=== PATIENT | male | born 1960 | race Caucasian/White ===

== ENCOUNTER 2016-05-15 09:48 | Inpatient (IN) | payer OTHER ==
[~2016-05-15 09:48] MED LIST: Bisacodyl 5 MG Tab PO PRN; Lactated Ringers 1,000 ML IV SCH; Lidocaine 1%/Sod Bicarbonate in NS 8.4% 1 ML Syringe IV PRN; Magnesium Hydroxide 400 MG/5 ML Susp 30 ML Cup PO PRN; Morphine 2 MG/ML Syringe IVPUSH PRN; Morphine 8 MG, EPINEPHrine 0.3 MG, Cefuroxime 750 MG, Ketorolac 30 MG, Sodium Chloride ... ONE; Ondansetron 4 MG/2 ML SDV IVPUSH PRN; Sodium Chloride 0.9% 10 ML Syringe FLUSH PRN
[2016-05-15] MEDS ORDERED: ceFAZolin 1 GM Vial ONE (09:50)
[2016-05-15] MEDS ORDERED: Bupivacaine 0.5% 30 ML SDV ONE (09:50)
[2016-05-15] MEDS ORDERED: Sodium Chloride 0.9% 10 ML ONE (09:55)
[2016-05-15] MEDS ORDERED: fentaNYL 100 MCG/2 ML SDV ONE (09:55)
[2016-05-15] MEDS ORDERED: Propofol 200 MG/20 ML SDV ONE ×9 (09:55→13:01)
[2016-05-15] MEDS ORDERED: Midazolam 1 MG/ML 2 ML SDV ONE ×2 (09:56→11:12)
--- NOTE | 2016-05-15 10:12 | PCM.PREANE ---
Preanesthetic Assessment - Anesthesia/Transfusion/Family Hx Anesthesia History: Prior Anesthesia Without Reaction Type of Anesthesia Reaction: Unknown Family History of Anesthesia Reaction: No Transfusion History: Unknown Type of Transfusion Reactions: Reports: Unknown - Review of Systems General: No Symptoms Pulmonary: No Symptoms Cardiovascular: No Symptoms (HTN, no meds currently) Gastrointestinal: No symptoms (GERD, ct shows hiatal hernia) Neurological: No Symptoms Other: Reports: Anxiety - Physical Assessment NPO Status Date: 05/15/16 NPO Status Time: 00:01 Pulse: 94 O2 Sat by Pulse Oximetry: 96 Respiratory Rate: 20 Blood Pressure: 156/84 Temperature: 36.7 C Weight: 128.73 kg ASA Class: 2 Mental Status: Alert & Oriented x3 Dentition: Reports: Normal Dentition Thyro-Mental Finger Breadths: 3 Mouth Opening Finger Breadths: 3 ROM/Head Extension: Full Lungs: Clear to auscultation, Normal respiratory effort Cardiovascular: Regular Rate, Regular Rhythm - Lab Values: Laboratory Last Values MRSA (PCR) Negative 04/28/16 10:51 - Allergies Allergies/Adverse Reactions: Allergies Allergy/AdvReac Type Severity Reaction Status Date / Time No Known Allergies Allergy Verified 05/12/16 12:52 - Blood Blood Available: No Product(s) Available: None - Anesthesia Plan Pre-Op Medication Ordered: None - Acknowledgements Anesthesia Type Planned: Spinal Pt an Appropriate Candidate for the Planned Anesthesia: Yes Alternatives and Risks of Anesthesia Discussed w Pt/Guardian: Yes Pt/Guardian Understands and Agrees with Anesthesia Plan: Yes PreAnesthesia Questionnaire Musculoskeletal History: Reports: Osteoarthritis Psychiatric History: Reports: Anxiety - Past Surgical History HEENT Surgical History: Reports: Cataract surgery GI Surgical History: Reports: Colonoscopy Musculoskeletal Surgical History: Reports: Carpal tunnel - SUBSTANCE USE Smoking Status *Q: Former Smoker Tobacco Use Within Last Twelve Months: Cigarettes Recreational Drug Use History: No - HOME MEDS Home Medications: Home Meds Famotidine [Pepcid] 20 mg PO DAILY 05/12/16 [History] Hydrocodone/Acetaminophen [[place] 5-325] 1 tab PO ASDIRECTED PRN 05/12/16 [ History] LORazepam [Ativan] 0.5 mg PO ASDIRECTED PRN 05/12/16 [History] - CURRENT (IN HOUSE) MEDS Current Meds: Current Medications Bisacodyl (Dulcolax) 5 mg PO DAILY PRN PRN Reason: Constipation Morphine Sulfate 8 mg/Epinephrine HCl 0.3 mg/Cefuroxime Sodium 750 mg/Ketorolac Tromethamine 30 mg/Sodium Chloride 27.9 ml 0 mg .XX ONETIME ONE Stop: 05/15/16 11:31 Cyclobenzaprine HCl (Flexeril) 10 mg PO TID PRN PRN Reason: Spasms Docusate Sodium (Colace) 100 mg PO BID [facility] Famotidine (Pepcid) 20 mg PO Q12H [facility] Lactated Ringer's (Ringers, Lactated) 1,000 mls @ 125 mls/hr IV ASDIRECTED [facility] Cefazolin Sodium/Dextrose 2 gm (/ Premix) 50 mls @ 100 mls/hr IV Q8H [facility] Stop: 05/16/16 02:14 Lidocaine/Sodium Bicarbonate (Buffered Lidocaine 1% In Ns 8.4%) 0.25 ml IV ONETIME PRN PRN Reason: Prior to IV Start Magnesium Hydroxide (Milk Of Magnesia) 30 ml PO BID PRN PRN Reason: Constipation Morphine Sulfate (Morphine) 2 mg IVPUSH Q2H PRN PRN Reason: Breakthrough Pain Multivitamins (Thera) 1 each PO WITHBREAKFAST [facility] Naloxone HCl (Narcan) 0.1 mg IVPUSH Q5M PRN PRN Reason: Oversedation Stop: 05/15/16 09:55 Ondansetron HCl (Zofran) 4 mg IVPUSH Q6H PRN PRN Reason: Nausea/Vomiting Oxycodone/Acetaminophen (Percocet 325-5 Mg) 1 - 2 tab PO Q4H PRN PRN Reason: Pain Rivaroxaban (Xarelto) 10 mg PO DAILY [facility] Senna (Senna) 8.6 mg PO BID PRN PRN Reason: Constipation Sodium Chloride (Saline Flush) 10 ml FLUSH ASDIRECTED PRN PRN Reason: Keep Vein Open Discontinued Medications Bupivacaine HCl (Marcaine 0.5%) Confirm Administered Dose 30 ml .ROUTE .STK-MED ONE Stop: 05/15/16 09:51 Cefazolin Sodium (Ancef) Confirm Administered Dose 2 gm .ROUTE .STK-MED ONE Stop: 05/15/16 09:56 Cefazolin Sodium (Ancef) Confirm Administered Dose 2 gm .ROUTE .STK-MED ONE Stop: 05/15/16 09:51 Morphine Sulfate 8 mg/Epinephrine HCl 0.3 mg/Cefuroxime Sodium 750 mg/Ketorolac Tromethamine 30 mg/Sodium Chloride 27.9 ml 0 mg .XX ONETIME ONE Stop: 05/15/16 08:58 Fentanyl (Sublimaze) Confirm Administered Dose 100 mcg .ROUTE .STK-MED ONE Stop: 05/15/16 09:56 Sodium Chloride (Normal Saline) Confirm Administered Dose 10 mls @ as directed .ROUTE .STK-MED ONE Stop: 05/15/16 09:56 Iodine (Iodine 2% Mild Tincture) Confirm Administered Dose 30 ml .ROUTE .STK- MED ONE Stop: 05/15/16 09:51 Midazolam HCl (Versed 1 Mg/Ml) Confirm Administered Dose 2 mg .ROUTE .STK-MED ONE Stop: 05/15/16 09:57 Propofol (Diprivan 20 Ml) Confirm Administered Dose 200 mg .ROUTE .STK-MED ONE Stop: 05/15/16 09:56 Tranexamic Acid (Cyklokapron) Confirm Administered Dose 1,000 mg .ROUTE .STK- MED ONE Stop: 05/15/16 09:51 Preanesthetic Assessment - LAB Values: Laboratory Last Values MRSA (PCR) Negative 04/28/16 10:51 - ALLERGIES Allergies/Adverse Reactions: Allergies Allergy/AdvReac Type Severity Reaction Status Date / Time No Known Allergies Allergy Verified 05/12/16 12:52
[2016-05-15] MEDS ORDERED: diphenhydrAMINE 50 MG/ML SDV IVPUSH PRN (10:18)
[2016-05-15] MEDS ORDERED: fentaNYL 100 MCG/2 ML SDV IVPUSH PRN (10:18)
[2016-05-15] MEDS ORDERED: Ondansetron 4 MG/2 ML SDV IVPUSH PRN (10:18)
[2016-05-15] MEDS ORDERED: Morphine PF 10 MG/10 ML SDV ONE (10:27)
[2016-05-15] MEDS ORDERED: HYDROmorphone 0.5 MG/0.5 ML Syringe IVPUSH PRN (11:30)
[2016-05-15] MEDS: Iodine/Sodium Iodide 2% Tincture 30 ML Bottle ONE ×2 (11:30→12:23)
[2016-05-15] MEDS: ceFAZolin 1 GM Vial ONE ×2 (11:31→12:27)
[2016-05-15] MEDS: Bupivacaine 0.25% 30 ML SDV ONE ×2 (11:32→12:32)
[2016-05-15] MEDS: Morphine 8 MG, EPINEPHrine 0.3 MG, Cefuroxime 750 MG, Ketorolac 30 MG, Sodium Chloride ... ONE ×15 (11:32→15:29)
[2016-05-15] MEDS ORDERED: Phenylephrine/Normal Saline 100 MCG/ML 10 ML Syringe ONE (11:38)
[2016-05-15] MEDS ORDERED: Lactated Ringers 1,000 ML ONE ×3 (11:56→13:14)
[2016-05-15] MEDS ORDERED: Naloxone 0.4 MG/ML SDV IVPUSH PRN (13:00)
--- NOTE | 2016-05-15 13:24 | PCM.POSTAN ---
POST ANESTHESIA ASSESSMENT - MENTAL STATUS Mental Status: alert, oriented - VITAL SIGNS Pulse Rate: 74 SaO2: 98 Resp Rate: 16 Blood Pressure: 103/64 Temperature: 36.5 C - RESPIRATORY Respiratory Status: respiratory rate WNL, airway patent, O2 saturation stable, supplemental oxygen - CARDIOVASCULAR CV Status: pulse rate WNL, blood pressure stable - GASTROINTESTINAL GI Status: no symptoms - PAIN Pain Score: 0 - POST OP HYDRATION Hydration Status: adequate & stable
--- NOTE | 2016-05-15 13:34 | PCM.CONS ---
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 Patient is doing relatively well. Currently, his pain is controlled. He denies any acute issues. Hospitalist was consulted for postoperative care. - Related Data Allergies/Adverse Reactions: Allergies Allergy/AdvReac Type Severity Reaction Status Date / Time No Known Allergies Allergy Verified 05/15/16 15:34 Home Medications: Home Meds Famotidine [Pepcid] 20 mg PO DAILY 05/12/16 [History] LORazepam [Ativan] 0.5 mg PO ASDIRECTED PRN 05/12/16 [History] Acetaminophen [Tylenol] 650 mg PO Q4H PRN 05/15/16 [History] Ergocalciferol (Vitamin D2) [Vitamin D2] 2,000 units PO DAILY 05/15/16 [History] Melatonin 6 mg PO BEDTIME 05/15/16 [History] Multivitamin [Men's Multi-Vitamin] 1 tab PO DAILY 05/15/16 [History] Ubidecarenone [Coq10] 1 tab PO DAILY 05/15/16 [History] Past Medical History Musculoskeletal History: Reports: Osteoarthritis Psychiatric History: Reports: Anxiety - Past Surgical History HEENT Surgical History: Reports: Cataract surgery GI Surgical History: Reports: Colonoscopy Musculoskeletal Surgical History: Reports: Carpal tunnel Social & Family History - Tobacco Use Smoking Status *Q: Former Smoker Used Tobacco, but Quit: Yes - Recreational Drug Use Recreational Drug Use: No Drug Use in Last 12 Months: No H&P Review of Systems - Review of Systems: Review Of Systems: See Below General: Denies: fever, chills, malaise, weakness, fatigue HEENT: Reports: no symptoms Pulmonary: Denies: Shortness of Breath, Cough Cardiovascular: Denies: chest pain Gastrointestinal: Denies: Abdominal pain, Nausea, Vomiting Genitourinary: Reports: no symptoms Musculoskeletal: Reports: no symptoms Skin: Denies: cyanosis, pallor, rash, erythema Psychiatric: Denies: depression, anxiety, hallucinations Neurological: Reports: Difficulty Walking, Gait Disturbance. Denies: Confusion Hematologic/Lymphatic: Reports: no symptoms Immunologic: Reports: no symptoms Exam - Exam Exam: See Below - Vital Signs Vital Signs: Last Vital Signs Temp 36.5 C 05/15/16 13:23 Pulse 74 05/15/16 13:23 Resp 16 05/15/16 13:23 BP 103/64 05/15/16 13:23 Pulse Ox 98 05/15/16 13:23 Weight: 128.73 kg - Exam General: alert, oriented, cooperative, other (Obese). No: mild distress HEENT: Conjunctiva clear, Mucosa moist & pink, Nares patent, Normal nasal septum , Posterior pharynx clear, Pupils equal Neck: supple, trachea midline, 2+ carotid pulse wo bruit, full range of motion, other (short and thick) Lungs: Clear to auscultation, Normal respiratory effort Cardiovascular: regular rate, regular rhythm Abdomen: normal bowel sounds, soft, other (Obese). No: organomegaly (Male) Exam: Other (indwelling sweet catheter) Rectal (Males) Exam: Deferred Back Exam: normal inspection, decreased range of motion Extremities: normal inspection, normal pulses. No: clubbing, cyanosis, calf tenderness, edema Peripheral Pulses: 2+: posterior tibial (L), posterior tibial (R), dorsalis pedis (L), dorsalis pedis (R) Skin: warm, dry, intact Neuro Extensive - Mental Status: oriented x3, normal cognition, memory intact Neuro Extensive - Motor, Sensory, Reflexes: CN II-XII intact (limited but fairly intact), abnormal gait Psychiatric: alert, normal affect, normal mood Consult PN Assessment/Plan POD#: 0 Procedures: Procedures COMPLETE CBC W/AUTO DIFF WBC (04/05/15) COMPREHEN METABOLIC PANEL (04/05/15) LIPID PANEL (04/05/15) PT EVALUATION (03/24/15) ROUTINE VENIPUNCTURE (04/05/15) THERAPEUTIC EXERCISES (04/16/15) X-RAY EXAM OF KNEE 3 (06/07/15) Problem List Initiated/Reviewed/Updated: Yes Plan: Assessment: Acute: Post-Operative Care State - Stable - Continue to monitor for hemodynamic instability S/p Left Total Knee Arthroplasty - Stable - DVT and Pain Management as per primary team Hx/o Chronic Osteoarthosis - Pain Management as per primary team Chronic: HTN Anxiety 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 Requesting Provider: Dr. Zambrano Date Consult Requested: 05/15/16 Reason for Consult: Post-Operative Care Patient History Reviewed: Yes Admission H&P Reviewed: Yes Consult Result/Summary: Stable
--- NOTE | 2016-05-15 16:05 | CR ---
Pelvis and left hip: AP view of the pelvis was obtained as well as lateral view of the left hip. Comparison: No previous study. Left hip prosthesis is seen. Components are aligned. Underlying bony structures are intact. Joint space within the right hip is maintained. No acute fracture or other abnormality is seen. Impression: 1. Satisfactory appearance of recently placed left hip prosthesis. 2. AP pelvis and left hip exam are unremarkable. Nondiagnostic code #2
[2016-05-15] MEDS: Acetaminophen/oxyCODONE 325-5 MG Tab PO PRN ×2 (16:12→20:41)
[2016-05-15] MEDS ORDERED: LORazepam 0.5 MG Tab PO PRN (16:43)
[2016-05-15] MEDS ORDERED: Acetaminophen 325 MG Tab PO PRN (16:43)
[2016-05-15] MEDS: ceFAZolin 2 GM in Premix Bag 1 BAG IV SCH (17:33)
[2016-05-15] MEDS: ceFAZolin 1 GM in Premix Bag 1 BAG IV SCH (17:34)
[2016-05-15] MEDS: Docusate Sodium 100 MG Cap PO SCH (20:41)
[2016-05-15] MEDS: Cyclobenzaprine 10 MG Tab PO PRN (20:42)
[2016-05-15] MEDS ORDERED: Melatonin 6 MG PO SCH (21:00)
[2016-05-15] MEDS ORDERED: Sennosides 8.6 MG Tab PO PRN (21:00)
[2016-05-15] MEDS ORDERED: Famotidine 20 MG Tab PO SCH ×2 (21:00)
[2016-05-16] MEDS: Acetaminophen/oxyCODONE 325-5 MG Tab PO PRN ×4 (00:38→14:07)
[2016-05-16] MEDS: ceFAZolin 2 GM in Premix Bag 1 BAG IV SCH ×3 (00:42→09:55)
[2016-05-16] MEDS: ceFAZolin 1 GM in Premix Bag 1 BAG IV SCH ×3 (00:42→09:55)
[2016-05-16] MEDS ORDERED: Multivitamins,Therapeutic Tab PO SCH ×2 (07:00→09:00)
[2016-05-16] MEDS ORDERED: UBIDECARENONE PO SCH (09:00)
[2016-05-16] MEDS ORDERED: Rivaroxaban 10 MG Tab PO SCH (09:00)
[2016-05-16] MEDS ORDERED: ERGOCALCIFEROL 2000 UNIT PO SCH (09:00)
--- NOTE | 2016-05-16 09:31 | PCM.CONSN ---
- General Info Date of Service: 05/16/16 Admission Dx/Problem (Free Text): Admission Diagnosis/Problem Admission Diagnosis/Problem Osteoarthritis of hip POD #1 S/P Lt ARMANDO with Dr. Zambrano Doing well, pain under fair control, slept well. No nausea. No CP, SOB, palpitations, abd pain VSS Labs stable. Hgb 11.9 this am. Functional Status: Reports: pain controlled, tolerating diet, ambulating, urinating. Denies: new symptoms - Review of Systems General: Reports: No Symptoms HEENT: Reports: no symptoms Pulmonary: Reports: no symptoms Cardiovascular: Reports: No Symptoms Gastrointestinal: Reports: No symptoms Genitourinary: Reports: no symptoms Musculoskeletal: Reports: leg pain (lt hip) Skin: Reports: no symptoms Neurological: Reports: No Symptoms Psychiatric: Reports: no symptoms - Patient Data Vitals - most recent: Last Vital Signs Temp 98.4 F 05/16/16 03:37 Pulse 94 05/16/16 03:37 Resp 16 05/16/16 08:00 BP 146/83 H 05/16/16 03:37 Pulse Ox 98 05/16/16 08:00 Weight - most recent: 293 lb 11.2 oz I&O - last 24 hours: Intake & Output 05/15/16 05/16/16 05/16/16 22:59 06:59 14:59 Intake Total 1180 1050 Output Total 785 250 Balance 395 800 Lab Results last 24 hrs: Laboratory Results - last 24 hr 05/16/16 05/16/16 05/16/16 Range/Units 05:53 05:53 05:53 WBC 11.54 H (4.23-9.07) K/mm3 RBC 4.12 L (4.63-6.08) M/mm3 Hgb 11.9 L (13.7-17.5) gm/L Hct 36.1 L (40.1-51.0) % MCV 87.6 (79.0-92.2) fl MCH 28.9 (25.7-32.2) pg MCHC 33.0 (32.2-35.5) g/dl RDW Std Deviation 42.1 (35.1-43.9) fL Plt Count 259 (163-337) K/mm3 MPV 9.7 (9.4-12.3) fl Neut % (Auto) 65.9 (34.0-67.9) % Lymph % (Auto) 16.8 L (21.8-53.1) % [place] % (Auto) 16.3 H (5.3-12.2) % Eos % (Auto) 0.7 L (0.8-7.0) Baso % (Auto) 0.1 (0.1-1.2) % Neut # 7.61 H (1.78-5.38) K/mm3 Lymph # 1.94 (1.32-3.57) K/mm3 [place] # 1.88 H (0.30-0.82) K/mm3 Eos # 0.08 (0.04-0.54) K/mm3 Baso # 0.01 (0.01-0.08) K/mm3 Manual Slide Review Normal smear Sodium 135 L (136-145) mEq/L Potassium 4.4 (3.5-5.1) mEq/L Chloride 100 (98-107) mEq/L Carbon Dioxide 26 (21-32) mEq/L Anion Gap 13.4 (5-15) BUN 18 (7-18) mg/dL Creatinine 1.0 (0.7-1.3) mg/dL Est Cr Clr Drug Dosing 84.15 mL/min Estimated GFR (MDRD) > 60 (>60) mL/min BUN/Creatinine Ratio 18.0 (14-18) Glucose 122 H (74-106) mg/dL Calcium 8.6 (8.5-10.1) mg/dL Total Bilirubin 0.5 (0.2-1.0) mg/dL Direct Bilirubin 0.10 (0.0-0.2) mg/dl Indirect Bilirubin 0.40 AST 27 (15-37) U/L ALT 21 (16-63) U/L Alkaline Phosphatase 84 (46-116) U/L Total Protein 6.3 L (6.4-8.2) g/dl Albumin 3.3 L (3.4-5.0) g/dl Globulin 3.0 gm/dL Albumin/Globulin Ratio 1.1 (1-2) Med Orders - Current: Current Medications Acetaminophen (Tylenol) 650 mg PO Q4H PRN PRN Reason: Breakthrough Pain Bisacodyl (Dulcolax) 5 mg PO DAILY PRN PRN Reason: Constipation Cyclobenzaprine HCl (Flexeril) 10 mg PO TID PRN PRN Reason: Spasms Last Admin: 05/15/16 20:42 Dose: 10 mg Docusate Sodium (Colace) 100 mg PO BID [facility] Last Admin: 05/15/16 20:41 Dose: 100 mg Famotidine (Pepcid) 20 mg PO BEDTIME [facility] Last Admin: 05/15/16 20:42 Dose: 20 mg Cefazolin Sodium/Dextrose 2 gm (/ Premix) 50 mls @ 100 mls/hr IV Q8H [facility] Stop: 05/16/16 10:29 Last Admin: 05/16/16 01:06 Dose: Not Given Cefazolin Sodium/Dextrose 1 gm (/ Premix) 50 mls @ 100 mls/hr IV Q8H [facility] Stop: 05/16/16 10:29 Last Admin: 05/16/16 01:06 Dose: Not Given Lorazepam (Ativan) 0.5 mg PO ASDIRECTED PRN PRN Reason: Anxiety Magnesium Hydroxide (Milk Of Magnesia) 30 ml PO BID PRN PRN Reason: Constipation Morphine Sulfate (Morphine) 2 mg IVPUSH Q2H PRN PRN Reason: Breakthrough Pain Multivitamins (Thera) 1 each PO DAILY [facility] Ondansetron HCl (Zofran) 4 mg IVPUSH Q6H PRN PRN Reason: Nausea/Vomiting Oxycodone/Acetaminophen (Percocet 325-5 Mg) 1 - 2 tab PO Q4H PRN PRN Reason: Pain Last Admin: 05/16/16 05:49 Dose: 2 tab Ergocalciferol ( Vitamin D2) [Vitamin D2] 2,000 Units 0 each PO DAILY [facility] Melatonin 6 Mg 0 each PO BEDTIME [facility] Last Admin: 05/15/16 20:43 Dose: Not Given Ubidecarenone [Coq10 (]) 0 each PO DAILY [facility] Rivaroxaban (Xarelto) 10 mg PO DAILY [facility] Senna (Senna) 8.6 mg PO BID PRN PRN Reason: Constipation Sodium Chloride (Saline Flush) 10 ml FLUSH ASDIRECTED PRN PRN Reason: Keep Vein Open Discontinued Medications Bupivacaine HCl (Marcaine 0.5%) Confirm Administered Dose [address] ml [address] .[facility]-MED ONE Stop: 05/15/16 09:51 Bupivacaine HCl (Marcaine 0.25%) Confirm Administered Dose 30 ml .ROUTE .STK- MED ONE Stop: 05/15/16 10:05 Last Admin: 05/15/16 12:32 Dose: 30 ml Cefazolin Sodium (Ancef) Confirm Administered Dose 2 gm .ROUTE .STK-MED ONE Stop: 05/15/16 09:56 Last Admin: 05/15/16 12:27 Dose: 2 gm Cefazolin Sodium (Ancef) Confirm Administered Dose 2 gm .ROUTE .STK-MED ONE Stop: 05/15/16 09:51 Morphine Sulfate 8 mg/Epinephrine HCl 0.3 mg/Cefuroxime Sodium 750 mg/Ketorolac Tromethamine 30 mg/Sodium Chloride 27.9 ml 0 mg .XX ONETIME ONE Stop: 05/15/16 11:31 Last Admin: 05/15/16 15:29 Dose: Not Given Morphine Sulfate 8 mg/Epinephrine HCl 0.3 mg/Cefuroxime Sodium 750 mg/Ketorolac Tromethamine 30 mg/Sodium Chloride 27.9 ml 0 mg .XX ONETIME ONE Stop: 05/15/16 08:58 Last Admin: 05/15/16 15:29 Dose: Not Given Diphenhydramine HCl (Benadryl) 25 mg IVPUSH Q6H PRN PRN Reason: itching Stop: 05/15/16 18:00 Last Admin: 05/15/16 14:37 Dose: 25 mg Famotidine (Pepcid) 20 mg PO Q12H [facility] Fentanyl (Sublimaze) Confirm Administered Dose 100 mcg .ROUTE .STK-MED ONE Stop: 05/15/16 09:56 Fentanyl (Sublimaze) 50 mcg IVPUSH Q5M PRN PRN Reason: pain Stop: 05/15/16 18:00 Hydromorphone HCl (Dilaudid) 0.5 mg IVPUSH Q15M PRN PRN Reason: Pain (severe 7-10) Stop: 05/15/16 11:46 Lactated Ringer's (Ringers, Lactated) 1,000 mls @ 125 mls/hr IV ASDIRECTED [facility] Last Admin: 05/15/16 10:10 Dose: 125 mls/hr Sodium Chloride (Normal Saline) Confirm Administered Dose 10 mls @ as directed .ROUTE .STK-MED ONE Stop: 05/15/16 09:56 Lactated Ringer's (Ringers, Lactated) Confirm Administered Dose 1,000 mls @ as directed .ROUTE .STK-MED ONE Stop: 05/15/16 11:57 Lactated Ringer's (Ringers, Lactated) Confirm Administered Dose 1,000 mls @ as directed .ROUTE .STK-MED ONE Stop: 05/15/16 12:13 Lactated Ringer's (Ringers, Lactated) Confirm Administered Dose 1,000 mls @ as directed .ROUTE .STK-MED ONE Stop: 05/15/16 13:15 Iodine (Iodine 2% Mild Tincture) Confirm Administered Dose 30 ml .ROUTE .STK- MED ONE Stop: 05/15/16 09:51 Last Admin: 05/15/16 12:23 Dose: 18 ml Lidocaine/Sodium Bicarbonate (Buffered Lidocaine 1% In Ns 8.4%) 0.25 ml IV ONETIME PRN PRN Reason: Prior to IV Start Stop: 05/15/16 18:00 Last Admin: 05/15/16 10:09 Dose: 0.25 ml Midazolam HCl (Versed 1 Mg/Ml) Confirm Administered Dose 2 mg .ROUTE .STK-MED ONE Stop: 05/15/16 09:57 Midazolam HCl (Versed 1 Mg/Ml) Confirm Administered Dose 2 mg .ROUTE .STK-MED ONE Stop: 05/15/16 11:13 Morphine Sulfate (Duramorph Pf) Confirm Administered Dose 10 mg .ROUTE .STK-MED ONE Stop: 05/15/16 10:28 Multivitamins (Thera) 1 each PO WITHBREAKFAST [facility] Naloxone HCl (Narcan) 0.1 mg IVPUSH Q5M PRN PRN Reason: Oversedation Stop: 05/15/16 13:16 Ondansetron HCl (Zofran) 4 mg IVPUSH ONETIME PRN PRN Reason: Nausea/Vomiting Stop: 05/15/16 18:00 Phenylephrine HCl (Phenylephrine In Ns 100 Mcg/Ml) Confirm Administered Dose 1 mg .ROUTE .STK-MED ONE Stop: 05/15/16 11:39 Propofol (Diprivan 20 Ml) Confirm Administered Dose 200 mg .ROUTE .STK-MED ONE Stop: 05/15/16 09:56 Propofol (Diprivan 20 Ml) Confirm Administered Dose 200 mg .ROUTE .STK-MED ONE Stop: 05/15/16 11:07 Propofol (Diprivan 20 Ml) Confirm Administered Dose 200 mg .ROUTE .STK-MED ONE Stop: 05/15/16 11:07 Propofol (Diprivan 20 Ml) Confirm Administered Dose 200 mg .ROUTE .STK-MED ONE Stop: 05/15/16 11:08 Propofol (Diprivan 20 Ml) Confirm Administered Dose 200 mg .ROUTE .STK-MED ONE Stop: 05/15/16 11:58 Propofol (Diprivan 20 Ml) Confirm Administered Dose 200 mg .ROUTE .STK-MED ONE Stop: 05/15/16 11:58 Propofol (Diprivan 20 Ml) Confirm Administered Dose 200 mg .ROUTE .STK-MED ONE Stop: 05/15/16 12:30 Propofol (Diprivan 20 Ml) Confirm Administered Dose 200 mg .ROUTE .STK-MED ONE Stop: 05/15/16 12:45 Propofol (Diprivan 20 Ml) Confirm Administered Dose 200 mg .ROUTE .STK-MED ONE Stop: 05/15/16 13:02 Tranexamic Acid (Cyklokapron) Confirm Administered Dose 1,000 mg .ROUTE .STK- MED ONE Stop: 05/15/16 09:51 Last Admin: 05/15/16 12:39 Dose: 1,000 mg - Exam Quality Assessment: DVT prophylaxis General: alert, oriented, cooperative, no acute distress HEENT: Pupils equal, Pupils reactive, EOMI, Mucous membr. moist/pink Neck: supple Lungs: Clear to auscultation, Normal respiratory effort Cardiovascular: Regular Rate, Regular Rhythm Abdomen: bowel sounds present, soft, no tenderness, no distension (Male) Exam: Deferred Extremities: no edema, no calf tenderness, other (Teds, SCD's, ice to lt hip) Peripheral Pulses: 1+: dorsalis pedis (L), dorsalis pedis (R) Skin: warm, dry Neurological: no new focal deficit Psy/Mental Status: alert, normal affect, normal mood Consult PN Assessment/Plan POD#: 1 Procedures: Procedures COMPLETE CBC W/AUTO DIFF WBC (04/05/15) COMPREHEN METABOLIC PANEL (04/05/15) LIPID PANEL (04/05/15) PT EVALUATION (03/24/15) ROUTINE VENIPUNCTURE (04/05/15) THERAPEUTIC EXERCISES (04/16/15) X-RAY EXAM OF KNEE 3 (06/07/15) (1) S/P total hip arthroplasty SNOMED Code(s): 217767708048, 235037723926 Code(s): Z96.649 - PRESENCE OF UNSPECIFIED ARTIFICIAL HIP JOINT Priority: High Current Visit: Yes Qualifiers: Laterality: left Qualified Code(s): Z96.642 - Presence of left artificial hip joint (2) Osteoarthritis SNOMED Code(s): 964644293 Code(s): M19.90 - UNSPECIFIED OSTEOARTHRITIS, UNSPECIFIED SITE Priority: High Current Visit: Yes Qualifiers: Osteoarthritis location: hip Osteoarthritis type: primary Laterality: left Qualified Code(s): M16.12 - Unilateral primary osteoarthritis, left hip (3) HTN (hypertension) SNOMED Code(s): 27460507 Code(s): I10 - ESSENTIAL (PRIMARY) HYPERTENSION Priority: Medium Current Visit: Yes Qualifiers: Hypertension type: essential hypertension Qualified Code(s): I10 - Essential (primary) hypertension (4) Anxiety SNOMED Code(s): 66922731 Code(s): F41.9 - ANXIETY DISORDER, UNSPECIFIED Priority: Medium Current Visit: No (5) Obesity SNOMED Code(s): 995710294 Code(s): E66.9 - OBESITY, UNSPECIFIED Priority: Medium Current Visit: No Qualifiers: Obesity type: unspecified obesity type Obesity severity: morbid Qualified Code(s): E66.01 - Morbid (severe) obesity due to excess calories Problem List Initiated/Reviewed/Updated: Yes Plan: Assessment/Plan POD #[address] Zambrano -Pain managment and DVT prophylax per primary team/Ortho -Doing well -VSS -Labs stable; hgb 11.9 Chronic conditions: Stable- cont home meds HTN- good control Anxiety Obesity Other: PT/OT CM/SW for assistance with DC planning OK for dc home today from hospitalist standpoint if ok with PT and Ortho Full Code Status
--- NOTE | 2016-05-16 09:43 | PCM48HPAN ---
Post Anesthesia Note - EVALUATION WITHIN 48HRS OF ANESTHETIC Vital Signs in Normal Range: Yes Patient Participated in Evaluation: Yes Respiratory Function Stable: Yes Airway Patent: Yes Cardiovascular Function Stable: Yes Hydration Status Stable: Yes Pain Control Satisfactory: Yes Nausea and Vomiting Control Satisfactory: Yes Mental Status Recovered: Yes
[2016-05-16] MEDS: Docusate Sodium 100 MG Cap PO SCH (09:53)
[2016-05-16] MEDS: Cyclobenzaprine 10 MG Tab PO PRN (09:54)
[2016-05-16 11:26] VITALS: BP 159/72
--- NOTE | 2016-05-16 13:05 | PCM.SURGPN ---
- General Info Date of Service: 05/16/16 POD#: 1 Functional Status: Reports: pain controlled, tolerating diet, ambulating, urinating. Denies: new symptoms - Review of Systems Musculoskeletal: Reports: other (The pt has met in-patient P.T. goals.) - Patient Data Vitals - most recent: Last Vital Signs Temp 98.8 F 05/16/16 11:22 Pulse 95 05/16/16 11:22 Resp 18 05/16/16 11:22 BP 161/78 H 05/16/16 11:22 Pulse Ox 98 05/16/16 11:22 Weight - most recent: 293 lb 11.2 oz I&O - last 24 hours: Intake & Output 05/15/16 05/16/16 05/16/16 22:59 06:59 14:59 Intake Total 1180 1050 120 Output Total 785 250 Balance 395 800 120 Lab Results last 24 hrs: Laboratory Results - last 24 hr 05/16/16 05/16/16 05/16/16 Range/Units 05:53 05:53 05:53 WBC 11.54 H (4.23-9.07) K/mm3 RBC 4.12 L (4.63-6.08) M/mm3 Hgb 11.9 L (13.7-17.5) gm/L Hct 36.1 L (40.1-51.0) % MCV 87.6 (79.0-92.2) fl MCH 28.9 (25.7-32.2) pg MCHC 33.0 (32.2-35.5) g/dl RDW Std Deviation 42.1 (35.1-43.9) fL Plt Count 259 (163-337) K/mm3 MPV 9.7 (9.4-12.3) fl Neut % (Auto) 65.9 (34.0-67.9) % Lymph % (Auto) 16.8 L (21.8-53.1) % Lander % (Auto) 16.3 H (5.3-12.2) % Eos % (Auto) 0.7 L (0.8-7.0) Baso % (Auto) 0.1 (0.1-1.2) % Neut # 7.61 H (1.78-5.38) K/mm3 Lymph # 1.94 (1.32-3.57) K/mm3 Lander # 1.88 H (0.30-0.82) K/mm3 Eos # 0.08 (0.04-0.54) K/mm3 Baso # 0.01 (0.01-0.08) K/mm3 Manual Slide Review Normal smear Sodium 135 L (136-145) mEq/L Potassium 4.4 (3.5-5.1) mEq/L Chloride 100 (98-107) mEq/L Carbon Dioxide 26 (21-32) mEq/L Anion Gap 13.4 (5-15) BUN 18 (7-18) mg/dL Creatinine 1.0 (0.7-1.3) mg/dL Est Cr Clr Drug Dosing 84.15 mL/min Estimated GFR (MDRD) > 60 (>60) mL/min BUN/Creatinine Ratio 18.0 (14-18) Glucose 122 H (74-106) mg/dL Calcium 8.6 (8.5-10.1) mg/dL Total Bilirubin 0.5 (0.2-1.0) mg/dL Direct Bilirubin 0.10 (0.0-0.2) mg/dl Indirect Bilirubin 0.40 AST 27 (15-37) U/L ALT 21 (16-63) U/L Alkaline Phosphatase 84 (46-116) U/L Total Protein 6.3 L (6.4-8.2) g/dl Albumin 3.3 L (3.4-5.0) g/dl Globulin 3.0 gm/dL Albumin/Globulin Ratio 1.1 (1-2) Med Orders - Current: Current Medications Acetaminophen (Tylenol) 650 mg PO Q4H PRN PRN Reason: Breakthrough Pain Bisacodyl (Dulcolax) 5 mg PO DAILY PRN PRN Reason: Constipation Cyclobenzaprine HCl (Flexeril) 10 mg PO TID PRN PRN Reason: Spasms Last Admin: 05/16/16 09:54 Dose: 10 mg Docusate Sodium (Colace) 100 mg PO BID [facility] Last Admin: 05/16/16 09:53 Dose: 100 mg Famotidine (Pepcid) 20 mg PO BEDTIME [facility] Last Admin: 05/15/16 20:42 Dose: 20 mg Lorazepam (Ativan) 0.5 mg PO ASDIRECTED PRN PRN Reason: Anxiety Magnesium Hydroxide (Milk Of Magnesia) 30 ml PO BID PRN PRN Reason: Constipation Morphine Sulfate (Morphine) 2 mg IVPUSH Q2H PRN PRN Reason: Breakthrough Pain Multivitamins (Thera) 1 each PO DAILY [facility] Last Admin: 05/16/16 09:53 Dose: 1 each Ondansetron HCl (Zofran) 4 mg IVPUSH Q6H PRN PRN Reason: Nausea/Vomiting Oxycodone/Acetaminophen (Percocet 325-5 Mg) 1 - 2 tab PO Q4H PRN PRN Reason: Pain Last Admin: 05/16/16 09:54 Dose: 2 tab Ergocalciferol ( Vitamin D2) [Vitamin D2] 2,000 Units 0 each PO DAILY [facility] Last Admin: 05/16/16 09:56 Dose: Not Given Melatonin 6 Mg 0 each PO BEDTIME [facility] Last Admin: 05/15/16 20:43 Dose: Not Given Ubidecarenone [Coq10 (]) 0 each PO DAILY [facility] Last Admin: 05/16/16 09:56 Dose: Not Given Rivaroxaban (Xarelto) 10 mg PO DAILY [facility] Last Admin: 05/16/16 09:54 Dose: 10 mg Senna (Senna) 8.6 mg PO BID PRN PRN Reason: Constipation Sodium Chloride (Saline Flush) 10 ml FLUSH ASDIRECTED PRN PRN Reason: Keep Vein Open Discontinued Medications Bupivacaine HCl (Marcaine 0.5%) Confirm Administered Dose 30 ml .ROUTE .STK-MED ONE Stop: 05/15/16 09:51 Bupivacaine HCl (Marcaine 0.25%) Confirm Administered Dose 30 ml .ROUTE .STK- MED ONE Stop: 05/15/16 10:05 Last Admin: 05/15/16 12:32 Dose: 30 ml Cefazolin Sodium (Ancef) Confirm Administered Dose 2 gm .ROUTE .STK-MED ONE Stop: 05/15/16 09:56 Last Admin: 05/15/16 12:27 Dose: 2 gm Cefazolin Sodium (Ancef) Confirm Administered Dose 2 gm .ROUTE .STK-MED ONE Stop: 05/15/16 09:51 Morphine Sulfate 8 mg/Epinephrine HCl 0.3 mg/Cefuroxime Sodium 750 mg/Ketorolac Tromethamine 30 mg/Sodium Chloride 27.9 ml 0 mg .XX ONETIME ONE Stop: 05/15/16 11:31 Last Admin: 05/15/16 15:29 Dose: Not Given Morphine Sulfate 8 mg/Epinephrine HCl 0.3 mg/Cefuroxime Sodium 750 mg/Ketorolac Tromethamine 30 mg/Sodium Chloride 27.9 ml 0 mg .XX ONETIME ONE Stop: 05/15/16 08:58 Last Admin: 05/15/16 15:29 Dose: Not Given Diphenhydramine HCl (Benadryl) 25 mg IVPUSH Q6H PRN PRN Reason: itching Stop: 05/15/16 18:00 Last Admin: 05/15/16 14:37 Dose: 25 mg Famotidine (Pepcid) 20 mg PO Q12H [facility] Fentanyl (Sublimaze) Confirm Administered Dose 100 mcg .ROUTE .STK-MED ONE Stop: 05/15/16 09:56 Fentanyl (Sublimaze) 50 mcg IVPUSH Q5M PRN PRN Reason: pain Stop: 05/15/16 18:00 Hydromorphone HCl (Dilaudid) 0.5 mg IVPUSH Q15M PRN PRN Reason: Pain (severe 7-10) Stop: 05/15/16 11:46 Lactated Ringer's (Ringers, Lactated) 1,000 mls @ 125 mls/hr IV ASDIRECTED [facility] Last Admin: 05/15/16 10:10 Dose: 125 mls/hr Cefazolin Sodium/Dextrose 2 gm (/ Premix) 50 mls @ 100 mls/hr IV Q8H [facility] Stop: 05/16/16 10:29 Last Admin: 05/16/16 09:55 Dose: 100 mls/hr Sodium Chloride (Normal Saline) Confirm Administered Dose 10 mls @ as directed .ROUTE .STK-MED ONE Stop: 05/15/16 09:56 Lactated Ringer's (Ringers, Lactated) Confirm Administered Dose 1,000 mls @ as directed .ROUTE .STK-MED ONE Stop: 05/15/16 11:57 Lactated Ringer's (Ringers, Lactated) Confirm Administered Dose 1,000 mls @ as directed .ROUTE .STK-MED ONE Stop: 05/15/16 12:13 Lactated Ringer's (Ringers, Lactated) Confirm Administered Dose 1,000 mls @ as directed .ROUTE .STK-MED ONE Stop: 05/15/16 13:15 Cefazolin Sodium/Dextrose 1 gm (/ Premix) 50 mls @ 100 mls/hr IV Q8H [facility] Stop: 05/16/16 10:29 Last Admin: 05/16/16 09:55 Dose: 100 mls/hr Iodine (Iodine 2% Mild Tincture) Confirm Administered Dose 30 ml .ROUTE .STK- MED ONE Stop: 05/15/16 09:51 Last Admin: 05/15/16 12:23 Dose: 18 ml Lidocaine/Sodium Bicarbonate (Buffered Lidocaine 1% In Ns 8.4%) 0.25 ml IV ONETIME PRN PRN Reason: Prior to IV Start Stop: 05/15/16 18:00 Last Admin: 05/15/16 10:09 Dose: 0.25 ml Midazolam HCl (Versed 1 Mg/Ml) Confirm Administered Dose 2 mg .ROUTE .STK-MED ONE Stop: 05/15/16 09:57 Midazolam HCl (Versed 1 Mg/Ml) Confirm Administered Dose 2 mg .ROUTE .STK-MED ONE Stop: 05/15/16 11:13 Morphine Sulfate (Duramorph Pf) Confirm Administered Dose 10 mg .ROUTE .STK-MED ONE Stop: 05/15/16 10:28 Multivitamins (Thera) 1 each PO WITHBREAKFAST [facility] Naloxone HCl (Narcan) 0.1 mg IVPUSH Q5M PRN PRN Reason: Oversedation Stop: 05/15/16 13:16 Ondansetron HCl (Zofran) 4 mg IVPUSH ONETIME PRN PRN Reason: Nausea/Vomiting Stop: 05/15/16 18:00 Phenylephrine HCl (Phenylephrine In Ns 100 Mcg/Ml) Confirm Administered Dose 1 mg .ROUTE .STK-MED ONE Stop: 05/15/16 11:39 Propofol (Diprivan 20 Ml) Confirm Administered Dose 200 mg .ROUTE .STK-MED ONE Stop: 05/15/16 09:56 Propofol (Diprivan 20 Ml) Confirm Administered Dose 200 mg .ROUTE .STK-MED ONE Stop: 05/15/16 11:07 Propofol (Diprivan 20 Ml) Confirm Administered Dose 200 mg .ROUTE .STK-MED ONE Stop: 05/15/16 11:07 Propofol (Diprivan 20 Ml) Confirm Administered Dose 200 mg .ROUTE .STK-MED ONE Stop: 05/15/16 11:08 Propofol (Diprivan 20 Ml) Confirm Administered Dose 200 mg .ROUTE .STK-MED ONE Stop: 05/15/16 11:58 Propofol (Diprivan 20 Ml) Confirm Administered Dose 200 mg .ROUTE .STK-MED ONE Stop: 05/15/16 11:58 Propofol (Diprivan 20 Ml) Confirm Administered Dose 200 mg .ROUTE .STK-MED ONE Stop: 05/15/16 12:30 Propofol (Diprivan 20 Ml) Confirm Administered Dose 200 mg .ROUTE .STK-MED ONE Stop: 05/15/16 12:45 Propofol (Diprivan 20 Ml) Confirm Administered Dose 200 mg .ROUTE .STK-MED ONE Stop: 05/15/16 13:02 Tranexamic Acid (Cyklokapron) Confirm Administered Dose 1,000 mg .ROUTE .STK- MED ONE Stop: 05/15/16 09:51 Last Admin: 05/15/16 12:39 Dose: 1,000 mg - Exam Wound/Incisions: dressing dry and intact General: alert, cooperative, no acute distress Lungs: Normal respiratory effort Extremities: normal pulses, no calf tenderness, other (Left thigh soft. Mod eccymosis and swelling left hip.) Psy/Mental Status: alert, normal mood - Problem List Review Problem List Initiated/Reviewed/Updated: Yes - My Orders Last 24 Hours: Active Orders 24 hr Category Date Time Status Ready for Discharge [RC] PER UNIT ROUTINE Care 05/16/16 12:59 Ordered Regular Diet [DIET] Diet 05/15/16 Dinner Active Acetaminophen [Tylenol] Med 05/15/16 16:43 Active 650 mg PO Q4H PRN Cyclobenzaprine [Flexeril] Med 05/15/16 15:00 Active 10 mg PO TID PRN Docusate Sodium [Colace] Med 05/15/16 21:00 Active 100 mg PO BID Famotidine [Pepcid] Med 05/15/16 21:00 Active 20 mg PO BEDTIME LORazepam [Ativan] Med 05/15/16 16:43 Active 0.5 mg PO ASDIRECTED PRN Multivitamins,Therapeutic [Thera] Med 05/16/16 09:00 Active 1 each PO DAILY Patient's Own Medication [Ptom] Med 05/15/16 21:00 Active 0 each PO BEDTIME Patient's Own Medication [Ptom] Med 05/16/16 09:00 Active 0 each PO DAILY Patient's Own Medication [Ptom] Med 05/16/16 09:00 Active 0 each PO DAILY Rivaroxaban [Xarelto] Med 05/16/16 09:00 Active 10 mg PO DAILY Sennosides [Senna] Med 05/15/16 21:00 Active 8.6 mg PO BID PRN Hip Precautions Posterior [OM.PC] Routine Oth 05/15/16 15:13 Ordered Weight bearing status [OM.PC] Routine Oth 05/15/16 15:13 Ordered Medication Orders Acetaminophen (Tylenol) 650 mg PO Q4H PRN PRN Reason: Breakthrough Pain Bisacodyl (Dulcolax) 5 mg PO DAILY PRN PRN Reason: Constipation Cyclobenzaprine HCl (Flexeril) 10 mg PO TID PRN PRN Reason: Spasms Last Admin: 05/16/16 09:54 Dose: 10 mg Admin: 05/15/16 20:42 Dose: 10 mg Docusate Sodium (Colace) 100 mg PO BID [facility] Last Admin: 05/16/16 09:53 Dose: 100 mg Admin: 05/15/16 20:41 Dose: 100 mg Famotidine (Pepcid) 20 mg PO BEDTIME [facility] Last Admin: 05/15/16 20:42 Dose: 20 mg Lorazepam (Ativan) 0.5 mg PO ASDIRECTED PRN PRN Reason: Anxiety Magnesium Hydroxide (Milk Of Magnesia) 30 ml PO BID PRN PRN Reason: Constipation Morphine Sulfate (Morphine) 2 mg IVPUSH Q2H PRN PRN Reason: Breakthrough Pain Multivitamins (Thera) 1 each PO DAILY [facility] Last Admin: 05/16/16 09:53 Dose: 1 each Ondansetron HCl (Zofran) 4 mg IVPUSH Q6H PRN PRN Reason: Nausea/Vomiting Oxycodone/Acetaminophen (Percocet 325-5 Mg) 1 - 2 tab PO Q4H PRN PRN Reason: Pain Last Admin: 05/16/16 09:54 Dose: 2 tab Admin: 05/16/16 05:49 Dose: 2 tab Admin: 05/16/16 00:38 Dose: 2 tab Admin: 05/15/16 20:41 Dose: 2 tab Admin: 05/15/16 16:12 Dose: 2 tab Ergocalciferol ( Vitamin D2) [Vitamin D2] 2,000 Units 0 each PO DAILY [facility] Last Admin: 05/16/16 09:56 Dose: Not Given Melatonin 6 Mg 0 each PO BEDTIME [facility] Last Admin: 05/15/16 20:43 Dose: Not Given Ubidecarenone [Coq10 (]) 0 each PO DAILY [facility] Last Admin: 05/16/16 09:56 Dose: Not Given Rivaroxaban (Xarelto) 10 mg PO DAILY [facility] Last Admin: 05/16/16 09:54 Dose: 10 mg Senna (Senna) 8.6 mg PO BID PRN PRN Reason: Constipation Sodium Chloride (Saline Flush) 10 ml FLUSH ASDIRECTED PRN PRN Reason: Keep Vein Open - Assessment Assessment (Free Text/Narrative):: POD#1 - left ARMANDO - Plan Plan (Free Text/Narrative):: 1. Discharge to home today. 2. Hgb 11.9. 3. Percocet and Flexeril for pain management at home. 4. ARMANDO precautions. 5. Xarelto for VTE prophylaxis. TEDs. Frequent mobility. The pt's case was discussed with Dr. Zambrano.
--- NOTE | 2016-05-19 21:08 | PCM.OPNOTE ---
- General Post-Op/Procedure Note Date of Surgery/Procedure: 05/15/16 Operative Procedure(s): left total hip arthroplasty Pre Op Diagnosis: left hip osteoarthrosis Post-Op Diagnosis: Same Anesthesia Technique: Local, MAC, Spinal Primary Surgeon: Elier Zambrano Anesthesia Provider: Karishma Arnold Monomer Purification Operator: Rosa Wyatt Monomer Purification Operator: Kimmie Jimenez EBRoss in mLs: 700 Complications: None Condition: Good
--- NOTE | 2016-05-19 21:53 | OR ---
DATE OF OPERATION: 05/15/2016 SURGEON: Elier Zambrano MD OPERATION PERFORMED: Left total hip arthroplasty. PREOPERATIVE DIAGNOSIS: Left hip osteoarthrosis. POSTOPERATIVE DIAGNOSIS: Left hip osteoarthrosis. ANESTHESIA: Local MAC with spinal. ANESTHESIA PROVIDER: Karishma Arnold CRNA. MULTI PUNCH OPERATOR: Rosa Wyatt PA-C, and Kimmie Jimenez LPN. ESTIMATED BLOOD LOSS: 700 mL. COMPLICATIONS: None. CONDITION: Stable. DESCRIPTION OF PROCEDURE: The patient was identified in the preop holding area. Proper site was marked and identified by the surgeon. The patient was taken back to the operating theater. After adequate anesthesia, the patient was placed in the right lateral decubitus position for left total hip arthroplasty. All bony prominences were well padded. PEG's were placed and a well padded. The patient's gluteal fold was parallel to the floor. At this time, the left hip was then sterilely prepped and draped in the usual sterile fashion. OR time-out was performed patient received 2 g IV Ancef. Standard posterior incision was taken down to the IT band and gluteal fascia. The IT band and gluteal fascia was incised along the incision length. Charnley retractor was then placed. Short external rotators were identified, take down short external rotators and piriformis tendon was done down to a capsulotomy. Capsulotomy was then performed. Hip was then dislocated. Neck cut was then completed. Attention was turned to the acetabulum. Anterior and posterior acetabular retractors were placed as well as inferior acetabular retractors. The pulvinar and excess labrum were then removed starting with a 45 reamer, reamed up to 54 mm cup. At this time, the cup was opened. It was impacted and was still found to be somewhat loose, so at this time, the 53 reamer was then reamed more medially and the 54 mm cup was then re-impacted into place. It was found to have solid fixation with roughly 45 degrees of abduction and 20 degrees of anteversion. At this time, NDM 48 mm liner was impacted into place. Attention was turned to the femur. Femoral elevator was then placed. Box chisel was used out laterally and the starter awl was placed down the canal. Starting with a 0 broach, able to broach up to a size 6 was found to be rotationally and vertically stable. At this time, we trialed MDM components for the femur. Hip was reduced. It was found to be short at a +4, so +8 was trialed and found to be equal leg lengths. It was stable throughout range of motion with no signs of dislocation. At this time, the hip was mainly dislocated. The size 6 Accolate 2 Karon stem was then impacted into place. A 28 mm +8 head was constructed on the back table with the 48 mm MDM polyethylene head. At this time, this was impacted onto the femoral stem and the hip was relocated. A 1 L dilute Betadine solution was then irrigated through the hip along with 3 L of pulse lavage irrigation with Ancef. Periarticular injection was then completed. At this time, a #5 Ethibond suture was used for closure of short external rotators and capsule. A #2 barbed suture was used for closure of the IT band and gluteal fascia. The 0 Vicryl was used to the fat layers 2-0 Vicryl was used subcutaneously and Prineo was used for the skin. The patient had a sterile soft dressing was applied and was sent to the PACU in stable condition. MMJEOVANY /[id number]
--- NOTE | 2016-05-23 13:16 | PCM.DCSUM1 ---
Discharge Summary - Hospital Course Brief History: Guille is a 56 yo male who underwent left ARMANDO with Dr. Zambrano on . The procedure was completed under spinal anesthesia. The pt tolerated the procedure well and was admitted to the Medical-Surgical Unit. Medical management was provided by the Hospitalist service. The pt's Hospital course was uneventful. The pt's Hgb on POD#1 was 119. On POD#1, Xarelto was initiated for VTE prophylaxis and the pt was prescribed a 35-day course. A Mepilex dressing was placed at the incision site at the time of surgery and remained clean and dry. The pt participated in P.T. and O.T. and progressed well. He followed the ARMANDO precautions. The pt was allowed to WBAT. On POD#1, the pt was deemed appropriate to discharge to home with his . - Discharge Data Discharge Date: 05/16/16 Discharge Disposition: Home, Self-Care 01 Condition: Good - Patient Summary/Data Operative Procedure(s) Performed: left total hip arthroplasty Consults: Consultations 05/15/16 09:39 Consult to Case Management [CONS] Routine Consult to Physician [CONS] Routine OT Evaluation and Treatment [CONS] Routine 05/15/16 09:41 PT Evaluation and Treatment [CONS] Routine - Patient Instructions Diet: Usual Diet as Tolerated Activity: Apply Ice, As Tolerated, Elevate Extremity, Full Weight Bearing Activity, Other: Follow the hip precautions Driving: Do Not Drive Showering/Bathing: May Shower Wound/Incision Care: Keep Operative Site/Wound Site Clean and Dry, Do NOT Change Dressing Notify Provider of: Fever, Increased Pain, Swelling and Redness, Drainage, Nausea and/or Vomiting Other/Special Instructions: Please get up and moving around EVERY HOUR while awake. This helps to prevent blood clots. Please use your walker and have help with mobility as needed. Follow the total hip precautions. Take the blood thinner medication - Xarelto - daily. Do the exercises you were taught in the Hospital. Schedule for P.T. Use the pain medication as needed. The medication may cause drowsiness and constipation. Contact your primary care provider for instructions if you are constipated. You may use a stool softener like docusate sodium or Colace 100mg twice daily and/or a laxative like Miralax daily for constipation. Use the ice machine often. Place a towel between the blue pad and your skin. Elevate the limb to decrease swelling. Keep the Mepilex dressing in place until follow-up at the Clinic. Notify the Clinic if the dressing is saturated. Wear the ADAM hose during the day and you may remove these at night. Schedule an appointment with your primary care provider for ' routine post-op care'. Call the Clinic with questions or concerns - [phone]. - Discharge Plan Prescriptions/Med Rec: Acetaminophen/oxyCODONE [Percocet 325-5 MG] 1 - 2 tab PO Q4H PRN #60 tablet PRN Reason: Pain Cyclobenzaprine [Flexeril] 10 mg PO TID PRN #40 tablet PRN Reason: Spasms Rivaroxaban [Xarelto] 10 mg PO DAILY #34 tablet Home Medications: Home Meds Famotidine [Pepcid] 20 mg PO DAILY 05/12/16 [History] LORazepam [Ativan] 0.5 mg PO ASDIRECTED PRN 05/12/16 [History] Ergocalciferol (Vitamin D2) [Vitamin D2] 2,000 units PO DAILY 05/15/16 [History] Melatonin 6 mg PO BEDTIME 05/15/16 [History] Multivitamin [Men's Multi-Vitamin] 1 tab PO DAILY 05/15/16 [History] Ubidecarenone [Coq10] 1 tab PO DAILY 05/15/16 [History] Acetaminophen/oxyCODONE [Percocet 325-5 MG] 1 - 2 tab PO Q4H PRN #60 tablet [Rx] Bisacodyl [Dulcolax] 5 mg PO DAILY PRN #0 tablet 05/16/16 [Rx] Cyclobenzaprine [Flexeril] 10 mg PO TID PRN #40 tablet 05/16/16 [Rx] Docusate Sodium [Colace] 100 mg PO BID cap 05/16/16 [Rx] Magnesium Hydroxide [Milk of Magnesia] 30 ml PO BID PRN #0 cup 05/16/16 [Rx] Rivaroxaban [Xarelto] 10 mg PO DAILY #34 tablet 05/16/16 [Rx] Sennosides [Senna] 8.6 mg PO BID PRN #0 tablet 05/16/16 [Rx] Patient Handouts: Hip Rehab Exercises-SportsMed, Total Hip Replacement, Easy-to -Read, Hip Rehabilitation After Surgery, Total Hip Replacement, Care After, Easy -to-Read Referrals: Rosa Wyatt PA-C [Physician Digital Asset Manager] - 05/23/16 10:30 am - Patient Data Vitals - Most Recent: Last Vital Signs Temp 98.8 F 05/16/16 11:22 Pulse 95 05/16/16 11:22 Resp 18 05/16/16 11:22 BP 161/78 H 05/16/16 11:22 Pulse Ox 98 05/16/16 11:22 Weight - Most Recent: 293 lb 11.2 oz Med Orders - Current: Current Medications Discontinued Medications Acetaminophen (Tylenol) 650 mg PO Q4H PRN PRN Reason: Breakthrough Pain Bisacodyl (Dulcolax) 5 mg PO DAILY PRN PRN Reason: Constipation Bupivacaine HCl (Marcaine 0.5%) Confirm Administered Dose 30 ml .ROUTE .STK-MED ONE Stop: 05/15/16 09:51 Bupivacaine HCl (Marcaine 0.25%) Confirm Administered Dose 30 ml .ROUTE .STK- MED ONE Stop: 05/15/16 10:05 Last Admin: 05/15/16 12:32 Dose: 30 ml Cefazolin Sodium (Ancef) Confirm Administered Dose 2 gm .ROUTE .STK-MED ONE Stop: 05/15/16 09:56 Last Admin: 05/15/16 12:27 Dose: 2 gm Cefazolin Sodium (Ancef) Confirm Administered Dose 2 gm .ROUTE .STK-MED ONE Stop: 05/15/16 09:51 Morphine Sulfate 8 mg/Epinephrine HCl 0.3 mg/Cefuroxime Sodium 750 mg/Ketorolac Tromethamine 30 mg/Sodium Chloride 27.9 ml 0 mg .XX ONETIME ONE Stop: 05/15/16 11:31 Last Admin: 05/15/16 15:29 Dose: Not Given Morphine Sulfate 8 mg/Epinephrine HCl 0.3 mg/Cefuroxime Sodium 750 mg/Ketorolac Tromethamine 30 mg/Sodium Chloride 27.9 ml 0 mg .XX ONETIME ONE Stop: 05/15/16 08:58 Last Admin: 05/15/16 15:29 Dose: Not Given Cyclobenzaprine HCl (Flexeril) 10 mg PO TID PRN PRN Reason: Spasms Last Admin: 05/16/16 09:54 Dose: 10 mg Diphenhydramine HCl (Benadryl) 25 mg IVPUSH Q6H PRN PRN Reason: itching Stop: 05/15/16 18:00 Last Admin: 05/15/16 14:37 Dose: 25 mg Docusate Sodium (Colace) 100 mg PO BID [facility] Last Admin: 05/16/16 09:53 Dose: 100 mg Famotidine (Pepcid) 20 mg PO Q12H IDANIA Famotidine (Pepcid) 20 mg PO BEDTIME [facility] Last Admin: 05/15/16 20:42 Dose: 20 mg Fentanyl (Sublimaze) Confirm Administered Dose 100 mcg .ROUTE .STK-MED ONE Stop: 05/15/16 09:56 Fentanyl (Sublimaze) 50 mcg IVPUSH Q5M PRN PRN Reason: pain Stop: 05/15/16 18:00 Hydromorphone HCl (Dilaudid) 0.5 mg IVPUSH Q15M PRN PRN Reason: Pain (severe 7-10) Stop: 05/15/16 11:46 Lactated Ringer's (Ringers, Lactated) 1,000 mls @ 125 mls/hr IV ASDIRECTED [facility] Last Admin: 05/15/16 10:10 Dose: 125 mls/hr Cefazolin Sodium/Dextrose 2 gm (/ Premix) 50 mls @ 100 mls/hr IV Q8H [facility] Stop: 05/16/16 10:29 Last Admin: 05/16/16 09:55 Dose: 100 mls/hr Sodium Chloride (Normal Saline) Confirm Administered Dose 10 mls @ as directed .ROUTE .STK-MED ONE Stop: 05/15/16 09:56 Lactated Ringer's (Ringers, Lactated) Confirm Administered Dose 1,000 mls @ as directed .ROUTE .STK-MED ONE Stop: 05/15/16 11:57 Lactated Ringer's (Ringers, Lactated) Confirm Administered Dose 1,000 mls @ as directed .ROUTE .STK-MED ONE Stop: 05/15/16 12:13 Lactated Ringer's (Ringers, Lactated) Confirm Administered Dose 1,000 mls @ as directed .ROUTE .STK-MED ONE Stop: 05/15/16 13:15 Cefazolin Sodium/Dextrose 1 gm (/ Premix) 50 mls @ 100 mls/hr IV Q8H [facility] Stop: 05/16/16 10:29 Last Admin: 05/16/16 09:55 Dose: 100 mls/hr Iodine (Iodine 2% Mild Tincture) Confirm Administered Dose 30 ml .ROUTE .STK- MED ONE Stop: 05/15/16 09:51 Last Admin: 05/15/16 12:23 Dose: 18 ml Lidocaine/Sodium Bicarbonate (Buffered Lidocaine 1% In Ns 8.4%) 0.25 ml IV ONETIME PRN PRN Reason: Prior to IV Start Stop: 05/15/16 18:00 Last Admin: 05/15/16 10:09 Dose: 0.25 ml Lorazepam (Ativan) 0.5 mg PO ASDIRECTED PRN PRN Reason: Anxiety Magnesium Hydroxide (Milk Of Magnesia) 30 ml PO BID PRN PRN Reason: Constipation Midazolam HCl (Versed 1 Mg/Ml) Confirm Administered Dose 2 mg .ROUTE .STK-MED ONE Stop: 05/15/16 09:57 Midazolam HCl (Versed 1 Mg/Ml) Confirm Administered Dose 2 mg .ROUTE .STK-MED ONE Stop: 05/15/16 11:13 Morphine Sulfate (Morphine) 2 mg IVPUSH Q2H PRN PRN Reason: Breakthrough Pain Morphine Sulfate (Duramorph Pf) Confirm Administered Dose 10 mg .ROUTE .STK-MED ONE Stop: 05/15/16 10:28 Multivitamins (Thera) 1 each PO WITHBREAKFAST [facility] Multivitamins (Thera) 1 each PO DAILY [facility] Last Admin: 05/16/16 09:53 Dose: 1 each Naloxone HCl (Narcan) 0.1 mg IVPUSH Q5M PRN PRN Reason: Oversedation Stop: 05/15/16 13:16 Ondansetron HCl (Zofran) 4 mg IVPUSH Q6H PRN PRN Reason: Nausea/Vomiting Ondansetron HCl (Zofran) 4 mg IVPUSH ONETIME PRN PRN Reason: Nausea/Vomiting Stop: 05/15/16 18:00 Oxycodone/Acetaminophen (Percocet 325-5 Mg) 1 - 2 tab PO Q4H PRN PRN Reason: Pain Last Admin: 05/16/16 14:07 Dose: 2 tab Ergocalciferol ( Vitamin D2) [Vitamin D2] 2,000 Units 0 each PO DAILY [facility] Last Admin: 05/16/16 09:56 Dose: Not Given Melatonin 6 Mg 0 each PO BEDTIME [facility] Last Admin: 05/15/16 20:43 Dose: Not Given Ubidecarenone [Coq10 (]) 0 each PO DAILY [facility] Last Admin: 05/16/16 09:56 Dose: Not Given Phenylephrine HCl (Phenylephrine In Ns 100 Mcg/Ml) Confirm Administered Dose 1 mg .ROUTE .STK-MED ONE Stop: 05/15/16 11:39 Propofol (Diprivan 20 Ml) Confirm Administered Dose 200 mg .ROUTE .STK-MED ONE Stop: 05/15/16 09:56 Propofol (Diprivan 20 Ml) Confirm Administered Dose 200 mg .ROUTE .STK-MED ONE Stop: 05/15/16 11:07 Propofol (Diprivan 20 Ml) Confirm Administered Dose 200 mg .ROUTE .STK-MED ONE Stop: 05/15/16 11:07 Propofol (Diprivan 20 Ml) Confirm Administered Dose 200 mg .ROUTE .STK-MED ONE Stop: 05/15/16 11:08 Propofol (Diprivan 20 Ml) Confirm Administered Dose 200 mg .ROUTE .STK-MED ONE Stop: 05/15/16 11:58 Propofol (Diprivan 20 Ml) Confirm Administered Dose 200 mg .ROUTE .STK-MED ONE Stop: 05/15/16 11:58 Propofol (Diprivan 20 Ml) Confirm Administered Dose 200 mg .ROUTE .STK-MED ONE Stop: 05/15/16 12:30 Propofol (Diprivan 20 Ml) Confirm Administered Dose 200 mg .ROUTE .STK-MED ONE Stop: 05/15/16 12:45 Propofol (Diprivan 20 Ml) Confirm Administered Dose 200 mg .ROUTE .STK-MED ONE Stop: 05/15/16 13:02 Rivaroxaban (Xarelto) 10 mg PO DAILY [facility] Last Admin: 05/16/16 09:54 Dose: 10 mg Senna (Senna) 8.6 mg PO BID PRN PRN Reason: Constipation Sodium Chloride (Saline Flush) 10 ml FLUSH ASDIRECTED PRN PRN Reason: Keep Vein Open Tranexamic Acid (Cyklokapron) Confirm Administered Dose 1,000 mg .ROUTE .STK- MED ONE Stop: 05/15/16 09:51 Last Admin: 05/15/16 12:39 Dose: 1,000 mg *Q Meaningful Use (DIS) - VTE *Q VTE Criteria *Q: - Stroke *Q Stroke Criteria *Q: - AMI *Q AMI Criteria *Q:
== END 2016-05-16 14:11 | disposition home or self-care (01) | DRG 470 ==
LOC: JD.MS 09:48 → MERGE 12:45 → JD.MS 14:14
PROVIDERS: ADMIT Orthopaedic Surgery; ATTEND Orthopaedic Surgery
PROC: 0SRB019 Replacement of Left Hip Joint with Metal Synthetic Substitute, Cemented, Open Approach (ICD-10-PCS; principal; 2016-05-15)
DX: M16.0 Bilateral primary osteoarthritis of hip (principal); Z68.41 Body mass index [BMI] 40.0-44.9, adult; M17.0 Bilateral primary osteoarthritis of knee; I10 Essential (primary) hypertension; F41.9 Anxiety disorder, unspecified; E66.9 Obesity, unspecified; I45.10 Unspecified right bundle-branch block; Z79.899 Other long term (current) drug therapy; Z87.891 Personal history of nicotine dependence
CPT/HCPCS: 01214; 36415; 73501-26-LT; 73501-LT; 80048; 80076; 85025; 87641; 94762; 97110-GP; 97116-GP; 97161-GP; 97165-GO; 97535-GO; A9270-GY; C1776; J0171; J0690; J0697; J1200; J1885; J2250; J2270; J2704; J3010; J3490; J7120

== ENCOUNTER → 2019-03-06 | Day surgery (SDC) | payer OTHER ==
--- NOTE | 2019-03-04 11:48 | PCM.PREANE ---
Preanesthetic Assessment - Anesthesia/Transfusion/Family Hx Anesthesia History: Prior Anesthesia Without Reaction Family History of Anesthesia Reaction: No Transfusion History: No Prior Transfusion(s) Intubation History: Unknown - Review of Systems General: No Symptoms Pulmonary: No Symptoms (Quit smoking 1995) Cardiovascular: No Symptoms Gastrointestinal: No Symptoms (GERD/Hiatal Hernia) Neurological: No Symptoms Other: Reports: None (History of BPH), Anxiety (none noted for a while per patient) - Physical Assessment NPO Status Date: 03/05/19 NPO Status Time: 21:00 Vital Signs: HR:89 BP:133/91 RESP:16 TEMP:97.8 SAT:95% Height: 1.83 m Weight: 131 kg ASA Class: 2 Mental Status: Alert & Oriented x3 Airway Class: Mallampati = 2 Dentition: Reports: Normal Dentition, [place] Thyro-Mental Finger Breadths: 4 Mouth Opening Finger Breadths: 3 ROM/Head Extension: Full Lungs: Clear to Auscultation, Normal Respiratory Effort Cardiovascular: Regular Rate, Regular Rhythm, No Murmurs - Lab Values: All labs reviewed and noted and within acceptable ranges to proceed with scheduled procedure. - Imaging/EKG Impressions: EKG: RBBB rate= 75 CXR: mild to moderate hiatal hernia/mild elevation of right hemidiaphragm noted otherwise unremarkable. - Allergies Allergies/Adverse Reactions: Allergies Allergy/AdvReac Type Severity Reaction Status Date / Time No Known Allergies Allergy Verified 03/05/19 16:40 - Anesthesia Plan Pre-Op Medication Ordered: None - Acknowledgements Anesthesia Type Planned: General Anesthesia Pt an Appropriate Candidate for the Planned Anesthesia: Yes Alternatives and Risks of Anesthesia Discussed w Pt/Guardian: Yes Pt/Guardian Understands and Agrees with Anesthesia Plan: Yes PreAnesthesia Questionnaire HEENT History: Reports: None Gastrointestinal History: Reports: GERD, Other (See Below) Other Gastrointestinal History: states he has some trouble swallowing at times if he doesn't chew his food well enough Musculoskeletal History: Reports: Osteoarthritis Psychiatric History: Reports: Anxiety - Past Surgical History HEENT Surgical History: Reports: Cataract Surgery Musculoskeletal Surgical History: Reports: Carpal Tunnel - HOME MEDS Home Medications: Home Meds Multivitamin [Men's Multi-Vitamin] 1 tab PO DAILY 05/15/16 [History] Acetaminophen [Tylenol] 650 mg PO Q4H PRN 03/05/19 [History] Omeprazole 40 mg PO DAILY 03/05/19 [History] Tamsulosin [Flomax] 0.4 mg PO DAILY 03/05/19 [History] allopurinoL [Zyloprim] 300 mg PO DAILY 03/05/19 [History] Acetaminophen/HYDROcodone [[place] 325-5 MG] 1 - 2 tab PO Q6H PRN #40 tablet 03/06 [Rx]
[~2019-03-06] MED LIST changes: +Acetaminophen/HYDROcodone 325-5 MG Tab PO SCH; +Albuterol 0.083% 2.5 MG/3 ML Neb Soln NEB ONE; -Bisacodyl 5 MG Tab PO PRN; +Bupivacaine 0.25% 10 ML SDV ONE; +Dexamethasone 4 MG/ML 5 ML MDV ONE; +HYDROmorphone 0.5 MG/0.5 ML Syringe ONE; +Ketorolac 30 MG/ML SDV ONE; +Lactated Ringers 1,000 ML ONE; +Lidocaine 1% 6 ML ONE; +Lidocaine 1%/Sod Bicarbonate in NS 8.4% 1 ML Syringe IDERM PRN; -Lidocaine 1%/Sod Bicarbonate in NS 8.4% 1 ML Syringe IV PRN; -Magnesium Hydroxide 400 MG/5 ML Susp 30 ML Cup PO PRN; +Midazolam 1 MG/ML 2 ML SDV ONE; -Morphine 2 MG/ML Syringe IVPUSH PRN; -Morphine 8 MG, EPINEPHrine 0.3 MG, Cefuroxime 750 MG, Ketorolac 30 MG, Sodium Chloride ... ONE; +Ondansetron 4 MG/2 ML SDV ONE; +Propofol 200 MG/20 ML SDV ONE; +Rocuronium 50 MG/5 ML Vial ONE; +ceFAZolin 1 GM Vial ONE; +diphenhydrAMINE 50 MG/ML SDV IVPUSH PRN; +fentaNYL 100 MCG/2 ML SDV IVPUSH PRN; +fentaNYL 250 MCG/5 ML SDV ONE
--- NOTE | 2019-03-06 14:26 | PCM.POSTAN ---
POST ANESTHESIA ASSESSMENT - MENTAL STATUS Mental Status: Other (drowsy ) - VITAL SIGNS Vital Signs: 1417 - 163/97, 94 2L, 91, 16, 98.1 Last Vital Signs Temp 36.6 C 03/06/19 10:05 Pulse 89 03/06/19 10:05 Resp 16 03/06/19 10:05 BP 142/88 H 03/06/19 10:05 Pulse Ox 95 03/06/19 10:49 - RESPIRATORY Respiratory Status: Respiratory Rate WNL, Airway Patent, O2 Saturation Stable - CARDIOVASCULAR CV Status: Pulse Rate WNL, Elevated Blood Pressure - GASTROINTESTINAL GI Status: No Symptoms - PAIN Pain Score: 0 - POST OP HYDRATION Hydration Status: Adequate & Stable
--- NOTE | 2019-03-06 15:28 | PCM48HPAN ---
Post Anesthesia Note - EVALUATION WITHIN 48HRS OF ANESTHETIC Vital Signs in Normal Range: Yes Patient Participated in Evaluation: Yes Respiratory Function Stable: Yes Airway Patent: Yes Cardiovascular Function Stable: Yes Hydration Status Stable: Yes Pain Control Satisfactory: Yes (better after pain med) Nausea and Vomiting Control Satisfactory: Yes Mental Status Recovered: Yes Vital Signs: Last Vital Signs Temp 98.1 F 03/06/19 15:00 Pulse 89 03/06/19 15:00 Resp 16 03/06/19 15:00 BP 151/85 H 03/06/19 15:00 Pulse Ox 93 L 03/06/19 15:00
--- NOTE | 2019-03-06 15:29 | CR ---
Left thumb: 3 fluoroscopic spot views of the utilizing C-arm device were obtained of the left wrist and thumb. Study shows resection of the trapezium. Fixation anchors are seen between the base of the 1st metacarpal and 2nd metacarpal. Fluoroscopy time is given as 16.7 seconds. Impression: 1. Procedural study as noted above. Diagnostic code #2 This report was dictated in [place] Standard Time
[2019-03-06 15:39] VITALS: BP 150/87; PULSE 84
--- NOTE | 2019-03-09 16:17 | PCM.OPNOTE ---
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
--- NOTE | 2019-03-09 16:45 | OR ---
DATE OF OPERATION: 03/06/2019 SURGEON: Elier Zambrano MD OPERATION PERFORMED: Left thumb trapeziectomy with TightRope suspension. PREOPERATIVE DIAGNOSIS: Left thumb basilar joint arthritis. POSTOPERATIVE DIAGNOSIS: Left thumb basilar joint arthritis. ANESTHESIA: General LMA with local. ANESTHESIA PROVIDER: Lidia Dukes. ASPARAGUS BUNCHER: Rosa Wyatt PA-C ESTIMATED BLOOD LOSS: Less than 5 mL. COMPLICATIONS: None. CONDITION: Stable. DESCRIPTION OF PROCEDURE: The patient was identified in the preop holding area where the proper site was marked and identified by the surgeon. The patient was taken back to the operating theater where, after adequate anesthesia, the patient's left upper extremity had a nonsterile tourniquet applied. The hand was then sterilely prepped and draped in the usual sterile fashion. OR time-out was performed. At this time, the left upper extremity was exsanguinated, and tourniquet was insufflated to 225 mmHg. At this time, a standard incision was made over the trapezium. Blunt dissection was taken down to the capsule, taking care to protecting the neurovascular bundles. At this time, a capsulotomy was performed of the basilar thumb joint, and it was elevated both volarly and dorsally. At this time, the trapeziectomy was identified. C-arm fluoroscopy was utilized to make sure that the proper bone was being resected. At this time, an osteotome and a rongeur were then used to remove the trapezium. I did utilize C-arm fluoroscopy multiple times to make sure that all bony fragments were removed and that I had adequate yarsanism of the joint line. At this point, the [employer] TightRope suspension system was utilized. The guide pin was drilled through the base of the 1st metacarpal up into the 2nd metacarpal metaphyseal region. C-arm fluoroscopy was utilized during this entire procedure to make sure that it was in the proper position. Once it was placed through the 2nd metacarpal, an incision was made over where the pin was coming out. This was taken down to the bone, making sure to protect the extensor tendon of the 2nd metacarpal. Once it was identified, the guide pin was placed all the way through both the 1st metacarpal and 2nd metacarpal, and the TightRope was brought up through the 2nd metacarpal. The suture limbs were cut on the 2nd metacarpal side and another button was placed. Tension was held, making sure the patient could get his hand completely flat and oppose his thumb without difficulty. Under C-arm fluoroscopy, it was found to have good yarsanism of the joint line with minimal bounce back. The FiberWire was then tied over the Endobutton. Adequate saline was irrigated through all wounds. 3-0 Vicryl was used subcutaneously. 4- 0 Monocryl was used for closure of the skin. The patient was placed in a sterile soft dressing and a radial thumb spica splint and sent to the PACU in stable condition. MMODAL /[id number]
== END | disposition home or self-care (01) ==
LOC: JD.SDS 08:54
PROVIDERS: ATTEND Orthopaedic Surgery
DX: M18.12 Unilateral primary osteoarthritis of first carpometacarpal joint, left hand (principal); K21.9 Gastro-esophageal reflux disease without esophagitis; K44.9 Diaphragmatic hernia without obstruction or gangrene; N40.0 Benign prostatic hyperplasia without lower urinary tract symptoms; F41.9 Anxiety disorder, unspecified; Z79.899 Other long term (current) drug therapy; Z87.891 Personal history of nicotine dependence
CPT/HCPCS: 25447; 76000; 87641; 94640; A9270; C1776; J0690; J1100; J1170; J1885; J2001; J2250; J2405; J2704; J3010; J3490; J7120; 01830

== ENCOUNTER 2019-05-14 06:58 | Day surgery (SDC) | payer OTHER ==
[~2019-05-14 06:58] MED LIST changes: -Acetaminophen/HYDROcodone 325-5 MG Tab PO SCH; -Albuterol 0.083% 2.5 MG/3 ML Neb Soln NEB ONE; -Bupivacaine 0.25% 10 ML SDV ONE; -Dexamethasone 4 MG/ML 5 ML MDV ONE; -HYDROmorphone 0.5 MG/0.5 ML Syringe ONE; -Ketorolac 30 MG/ML SDV ONE; -Lactated Ringers 1,000 ML ONE; -Lidocaine 1% 6 ML ONE; -Midazolam 1 MG/ML 2 ML SDV ONE; -Ondansetron 4 MG/2 ML SDV IVPUSH PRN; -Ondansetron 4 MG/2 ML SDV ONE; -Propofol 200 MG/20 ML SDV ONE; -Rocuronium 50 MG/5 ML Vial ONE; -ceFAZolin 1 GM Vial ONE; -diphenhydrAMINE 50 MG/ML SDV IVPUSH PRN; -fentaNYL 100 MCG/2 ML SDV IVPUSH PRN; -fentaNYL 250 MCG/5 ML SDV ONE
[2019-05-14] MEDS ORDERED: Bupivacaine 0.25% 10 ML SDV ONE (07:23)
--- NOTE | 2019-05-14 07:37 | PCM.PREANE ---
Preanesthetic Assessment - Anesthesia/Transfusion/Family Hx Anesthesia History: Prior Anesthesia Without Reaction Family History of Anesthesia Reaction: No Transfusion History: No Prior Transfusion(s) Type of Transfusion Reactions: Reports: Unknown Intubation History: Unknown - Review of Systems General: No Symptoms Pulmonary: No Symptoms Cardiovascular: Dyspnea on Exertion Gastrointestinal: No Symptoms Neurological: No Symptoms Other: Reports: None - Physical Assessment NPO Status Date: 05/13/19 NPO Status Time: 00:00 Height: 1.83 m Weight: 189.6 kg ASA Class: 2 Mental Status: Alert & Oriented x3 Airway Class: Mallampati = 2 Dentition: Reports: [place](s) Thyro-Mental Finger Breadths: 2 Mouth Opening Finger Breadths: 2 ROM/Head Extension: Full Lungs: Clear to Auscultation, Normal Respiratory Effort Cardiovascular: Regular Rate, Regular Rhythm - Allergies Allergies/Adverse Reactions: Allergies Allergy/AdvReac Type Severity Reaction Status Date / Time No Known Allergies Allergy Verified 05/13/19 10:29 - Blood Blood Available: No Product(s) Available: None - Anesthesia Plan Pre-Op Medication Ordered: None - Acknowledgements Anesthesia Type Planned: General Anesthesia Pt an Appropriate Candidate for the Planned Anesthesia: Yes Alternatives and Risks of Anesthesia Discussed w Pt/Guardian: Yes Pt/Guardian Understands and Agrees with Anesthesia Plan: Yes PreAnesthesia Questionnaire HEENT History: Reports: Impaired Vision Cardiovascular History: Reports: Other (See Below) Other Cardiovascular History: right bundle branch block Respiratory History: Reports: None Gastrointestinal History: Reports: GERD, Other (See Below) Other Gastrointestinal History: states he has some trouble swallowing at times if he doesn't chew his food well enough Genitourinary History: Reports: BPH ROTARY SURFACE GRINDER History: Reports: None Musculoskeletal History: Reports: Osteoarthritis Other Musculoskeletal History: degenerative joint disease Neurological History: Reports: None Psychiatric History: Reports: Anxiety Endocrine/Metabolic History: Reports: None Hematologic History: Reports: None Immunologic History: Reports: None Oncologic (Cancer) History: Reports: None Dermatologic History: Reports: None - Past Surgical History Head Surgeries/Procedures: Reports: None HEENT Surgical History: Reports: Cataract Surgery Cardiovascular Surgical History: Reports: None Respiratory Surgical History: Reports: None GI Surgical History: Reports: Colonoscopy, EGD Female Surgical History: Reports: None Male Surgical History: Reports: None Endocrine Surgical History: Reports: None Neurological Surgical History: Reports: None Musculoskeletal Surgical History: Reports: Carpal Tunnel, Hip Replacement Other Musculoskeletal Surgeries/Procedures:: left total hip 05/15/16 Oncologic Surgical History: Reports: None Dermatological Surgical History: Reports: None - SUBSTANCE USE Smoking Status *Q: Former Smoker Tobacco Use Within Last Twelve Months: No Second Hand Smoke Exposure: No Days Per Week of Alcohol Use: 1 Number of Drinks Per Day: 0 Total Drinks Per Week: 0 Recreational Drug Use History: No - HOME MEDS Home Medications: Home Meds Multivitamin [Men's Multi-Vitamin] 1 tab PO DAILY 05/15/16 [History] Omeprazole 40 mg PO DAILY 03/05/19 [History] Tamsulosin [Flomax] 0.4 mg PO DAILY 03/05/19 [History] allopurinoL [Zyloprim] 300 mg PO DAILY 03/05/19 [History] Acetaminophen [Tylenol] 650 mg PO Q4H PRN #0 05/14/19 [Rx] Acetaminophen/oxyCODONE [Percocet 325-5 MG] 1 - 2 each PO Q4HR PRN #40 tab 05/13 [Rx] - CURRENT (IN HOUSE) MEDS Current Meds: Current Medications Lactated Ringer's (Ringers, Lactated) 1,000 mls @ 125 mls/hr IV ASDIRECTED IDANIA Lidocaine/Sodium Bicarbonate (Buffered Lidocaine 1% In Ns 8.4%) 0.25 ml IDERM ONETIME PRN PRN Reason: Prior to IV Start Sodium Chloride (Saline Flush) 10 ml FLUSH ASDIRECTED PRN PRN Reason: Keep Vein Open Discontinued Medications Bupivacaine HCl (Sensorcaine-Mpf 0.25%) Confirm Administered Dose 20 ml .ROUTE .STK-MED ONE Stop: 05/14/19 07:24
[2019-05-14] MEDS ORDERED: fentaNYL 100 MCG/2 ML SDV ONE ×2 (08:30→09:09)
[2019-05-14] MEDS ORDERED: Propofol 200 MG/20 ML SDV ONE (08:30)
[2019-05-14] MEDS ORDERED: Midazolam 1 MG/ML 2 ML SDV ONE (08:30)
[2019-05-14] MEDS ORDERED: Lidocaine 1% 4 ML ONE (08:32)
[2019-05-14] MEDS ORDERED: ceFAZolin 1 GM Vial ONE (08:33)
[2019-05-14] MEDS ORDERED: Ondansetron 4 MG/2 ML SDV ONE (09:04)
[2019-05-14] MEDS ORDERED: HYDROmorphone 0.5 MG/0.5 ML Syringe IVPUSH PRN (09:23)
[2019-05-14] MEDS ORDERED: Lactated Ringers 1,000 ML ONE (09:35)
[2019-05-14] MEDS: fentaNYL 100 MCG/2 ML SDV IVPUSH PRN ×2 (10:24→10:56)
[2019-05-14] MEDS ORDERED: Acetaminophen/oxyCODONE 325-5 MG Tab PO PRN (10:48)
--- NOTE | 2019-05-14 10:48 | PCM.POSTAN ---
POST ANESTHESIA ASSESSMENT - MENTAL STATUS Mental Status: Alert, Oriented - VITAL SIGNS Vital Signs: Last Vital Signs Temp 97.4 F 05/14/19 10:15 Pulse 85 05/14/19 07:15 Resp 14 05/14/19 10:45 BP 127/79 05/14/19 10:45 Pulse Ox 95 05/14/19 10:47 - RESPIRATORY Respiratory Status: Respiratory Rate WNL, Airway Patent, O2 Saturation Stable - CARDIOVASCULAR CV Status: Pulse Rate WNL, Blood Pressure Stable - GASTROINTESTINAL GI Status: No Symptoms - PAIN Pain Score: 6 - POST OP HYDRATION Hydration Status: Adequate & Stable
--- NOTE | 2019-05-14 11:54 | CR ---
Right wrist: Four fluoroscopic spot views were obtained of the right wrist. Study obtained utilizing C-arm device. Study shows resection of the trapezium. Fixation anchors are noted between the first and second metacarpals. Joint space narrowing is noted off the distal navicular bone. Fluoroscopy time given as 15.1 seconds. Impression: 1. Procedural study as noted above. Diagnostic code #2 Study was dictated in MDT
[2019-05-14 12:25] VITALS: BP 130/71; PULSE 81
--- NOTE | 2019-05-14 12:29 | PCM48HPAN ---
Post Anesthesia Note - EVALUATION WITHIN 48HRS OF ANESTHETIC Vital Signs in Normal Range: Yes Patient Participated in Evaluation: Yes Respiratory Function Stable: Yes Airway Patent: Yes Cardiovascular Function Stable: Yes Hydration Status Stable: Yes Pain Control Satisfactory: Yes Nausea and Vomiting Control Satisfactory: Yes Mental Status Recovered: Yes Vital Signs: Last Vital Signs Temp 97.5 F 05/14/19 12:00 Pulse 81 05/14/19 12:00 Resp 16 05/14/19 12:00 BP 130/71 05/14/19 12:00 Pulse Ox 97 05/14/19 12:00
--- NOTE | 2019-05-19 12:55 | PCM.OPNOTE ---
- General Post-Op/Procedure Note Date of Surgery/Procedure: 05/14/19 Operative Procedure(s): right thumb trapeziectomy with tight rope suspension arthroplasty Pre Op Diagnosis: right thumb basilar joint arthririts Post-Op Diagnosis: Same Anesthesia Technique: General LMA, Local Primary Surgeon: Elier Zambrano Anesthesia Provider: Mulugeta Mcclellan Boot Repairer: Rosa Wyatt EBL in mLs: 5 Complications: None Condition: Good
--- NOTE | 2019-05-19 13:39 | OR ---
DATE OF OPERATION: 05/14/2019 SURGEON: Elier Zmabrano MD OPERATION PERFORMED: Left thumb trapeziectomy with TightRope suspension arthroplasty. PREOPERATIVE DIAGNOSIS: Right thumb basilar joint arthritis. POSTOPERATIVE DIAGNOSIS: Right thumb basilar joint arthritis.. ANESTHESIA: General LMA with local. ANESTHESIA PROVIDER: Brandie Frederick. SAAS ARCHITECT: Rosa Wyatt PA-C ESTIMATED BLOOD LOSS: Less than 5 mL. COMPLICATIONS: None. CONDITION: Stable. DESCRIPTION OF PROCEDURE: The patient was identified in the preop holding area where proper site was marked and identified by the surgeon. The patient was taken back to the operating theater where after adequate anesthesia, the patient's right upper extremity was sterilely prepped and draped in the usual sterile fashion. OR time-out was performed. The patient received 2 g of IV Ancef. Right upper extremity was then exsanguinated. Tourniquet was then insufflated to 225 mmHg. A standard incision was made over the trapezium. This was taken down to the first dorsal compartment, which the tendon ends were retracted. Care was taken to protect the neurovascular bundle on the distal portion of the incision. A capsulotomy was then performed of the basilar thumb joint, and this was taken all the way around the base of the first metacarpal and elevating the capsule off the trapezium. Once this was elevated, a rongeur and an osteotome were used to remove all of the trapezium under direct C-arm fluoroscopy, making sure that we had resected all of it en bloc. C-arm fluoroscopy then showed that it was in good position. A guide pin was then placed at the base of the first metacarpal up into the second metacarpal making sure to keep adequate tension on the thumb. Once it was found to be in the adequate spot, incision was made over the second metacarpal on the dorsal side. The pin was identified to be in good position, and the pin was brought all the way through the TightRope, which was then brought up from the base of the first metacarpal up to the second metacarpal, and the TightRope with the flip button suspension on the first metacarpal had good adequate positioning on C-arm fluoroscopy. The suture limbs were then cut on the second metacarpal region, and the Endobutton was placed there on the contralateral side of the second metacarpal. This was then tied under good tension making sure the patient could get his palm flat and oppose his thumb with his small digit. C-arm fluoroscopy again was utilized. It was found to have adequate positioning of all components and good open space of the basilar thumb joint and a full resection of the trapezium. Adequate saline was irrigated through the wound. A 2-0 Vicryl was used for deep closure, 3-0 Vicryl was used subcutaneously, and Monocryl was used for closure of the skin. The patient was placed in a sterile soft dressing and a splint and sent to the PACU in stable condition. MMODAL /[id number]
== END 2019-05-14 12:23 | disposition home or self-care (01) ==
LOC: JD.SDS 06:58
PROVIDERS: ATTEND Orthopaedic Surgery
DX: M19.041 Primary osteoarthritis, right hand (principal); K21.9 Gastro-esophageal reflux disease without esophagitis; N40.0 Benign prostatic hyperplasia without lower urinary tract symptoms; M10.9 Gout, unspecified; Z79.899 Other long term (current) drug therapy; Z98.890 Other specified postprocedural states; Z86.79 Personal history of other diseases of the circulatory system
CPT/HCPCS: 25210; 76000; A9270; C1776; J0690; J2001; J2250; J2405; J2704; J3010; J3490; J7120; 01830

== ENCOUNTER 2019-09-15 07:09 | Inpatient (IN) | payer OTHER ==
[~2019-09-15 07:09] MED LIST changes: +Acetaminophen 325 MG Tab PO SCH; +Bisacodyl 5 MG Tab PO PRN; +Famotidine 20 MG Tab PO SCH; +Ketorolac 15 MG/ML SDV IVPUSH PRN; +Magnesium Hydroxide 400 MG/5 ML Susp 30 ML Cup PO PRN; +Morphine 2 MG/ML SYRINGE IVPUSH PRN; +Naloxone 0.4 MG/ML SDV IVPUSH PRN; +Ondansetron 4 MG/2 ML SDV IVPUSH PRN; +Pregabalin 25 MG Cap PO SCH; +Sennosides 8.6 MG Tab PO PRN; +oxyCODONE ER 10 MG TAB.ER PO SCH
[2019-09-15] MEDS ORDERED: Ropivacaine 0.5% 5 MG/ML 30 ML SDV ONE (07:12)
[2019-09-15] MEDS ORDERED: EPINEPHrine 1 MG/ML SDV ONE (07:12)
--- NOTE | 2019-09-15 07:14 | PCM.CONS ---
H&P History of Present Illness - General Date of Service: 09/15/19 Admit Problem/Dx: Admission Diagnosis/Problem Admission Diagnosis/Problem Osteoarthritis of knee Source of Information: Patient, Old Records, Provider, RN, RN Notes Reviewed History Limitations: Reports: No Limitations - History of Present Illness Initial Comments - Free Text/Narative: Guille Mason is a 59 yo male patient of Dr. Zambrano who is post-operative day 0 of right TKA. Hospital medicine was consulted for post-operative medical care of the following listed medical conditions. At this time he is resting comfortably in bed. Pain is controlled. He denies any chest pain, shortness of breath, palpitations, nausea, or vomiting. He carries a history of: GERD, BPH, RBBB, Chronic back pain, Grade 1 Diastolic dysfunction, Anxiety. He is a former smoker. He is a full code. His primary care provider is Dr. Farris. - Related Data Allergies/Adverse Reactions: Allergies Allergy/AdvReac Type Severity Reaction Status Date / Time No Known Allergies Allergy Verified 09/15/19 06:34 Home Medications: Home Meds Multivitamin [Men's Multi-Vitamin] 1 tab PO DAILY 05/15/16 [History] Omeprazole 40 mg PO DAILY 03/05/19 [History] Tamsulosin [Flomax] 0.4 mg PO DAILY 03/05/19 [History] allopurinoL [Zyloprim] 300 mg PO DAILY 03/05/19 [History] Acetaminophen [Tylenol Arthritis] 650 mg PO Q4H PRN 09/12/19 [History] Aspirin 81 mg PO DAILY 09/12/19 [History] Cholecalciferol (Vitamin D3) [Vitamin D3] 5,000 unit PO DAILY 09/12/19 [History] LORazepam [Ativan] 0.5 mg PO DAILY PRN 09/12/19 [History] traMADol [Ultram] 50 mg PO Q6H PRN 09/12/19 [History] Past Medical History HEENT History: Reports: Impaired Vision Cardiovascular History: Reports: Other (See Below) Other Cardiovascular History: right bundle branch block Respiratory History: Reports: None Gastrointestinal History: Reports: GERD, Other (See Below) Other Gastrointestinal History: states he has some trouble swallowing at times if he doesn't chew his food well enough Genitourinary History: Reports: BPH 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 Musculoskeletal History: Reports: Back Pain, Chronic, Osteoarthritis Other Musculoskeletal History: degenerative joint disease Neurological History: Reports: None Psychiatric History: Reports: Anxiety Endocrine/Metabolic History: Reports: None Hematologic History: Reports: None Immunologic History: Reports: None Oncologic (Cancer) History: Reports: None Dermatologic History: Reports: None - Past Surgical History Head Surgeries/Procedures: Reports: None HEENT Surgical History: Reports: Cataract Surgery Cardiovascular Surgical History: Reports: None Respiratory Surgical History: Reports: None GI Surgical History: Reports: Colonoscopy, EGD Female Surgical History: Reports: None Male Surgical History: Reports: None Endocrine Surgical History: Reports: None Neurological Surgical History: Reports: None Musculoskeletal Surgical History: Reports: Carpal Tunnel, Hip Replacement Other Musculoskeletal Surgeries/Procedures:: left total hip 05/15/16, bilateral wrist trapezectomy, bilateral carpal tunnel release, degenerative joint disease, gout Oncologic Surgical History: Reports: None Dermatological Surgical History: Reports: None Social & Family History - Tobacco Use Smoking Status *Q: Former Smoker Used Tobacco, but Quit: Yes Month/Year Tobacco Last Used: 1979 Second Hand Smoke Exposure: No - Caffeine Use Caffeine Use: Reports: Coffee Other Caffeine Use: diet pepsi, coffee in the morning - Alcohol Use Days Per Week of Alcohol Use: 1 Number of Drinks Per Day: 1 Total Drinks Per Week: 1 - Recreational Drug Use Recreational Drug Use: No H&P Review of Systems - Review of Systems: Review Of Systems: See Below General: Reports: No Symptoms. Denies: Fever, Chills HEENT: Reports: No Symptoms. Denies: Headaches, Sore Throat Pulmonary: Reports: No Symptoms. Denies: Shortness of Breath, Wheezing, Pleuritic Chest Pain, Cough, Sputum Cardiovascular: Reports: No Symptoms. Denies: Chest Pain, Palpitations, Dyspnea on Exertion, Lightheadedness Gastrointestinal: Reports: No Symptoms. Denies: Abdominal Pain, Constipation, Diarrhea, Nausea, Vomiting Genitourinary: Reports: Incontinence. Denies: Pain Musculoskeletal: Reports: Leg Pain Skin: Reports: No Symptoms. Denies: Cyanosis Psychiatric: Reports: No Symptoms. Denies: Confusion Neurological: Reports: Numbness, Tingling, Difficulty Walking, Gait Disturbance. Denies: Pre-Existing Deficit, Weakness Hematologic/Lymphatic: Reports: No Symptoms Immunologic: Reports: No Symptoms Exam - Exam Exam: See Below - Exam Quality Assessment: DVT Prophylaxis. No: Supplemental Oxygen, Urinary Catheter General: Alert, Oriented, Cooperative. No: Mild Distress HEENT: Conjunctiva Clear, EACs Clear, EOMI, Mucosa Moist & [place], Nares Patent, Posterior Pharynx Clear, PERRLA Neck: Supple, Trachea Midline Lungs: Clear to Auscultation, Normal Respiratory Effort Cardiovascular: Regular Rate, Regular Rhythm GI/Abdominal Exam: Normal Bowel Sounds, Soft, Non-Tender, No Distention (Male) Exam: Deferred Rectal (Males) Exam: Deferred Back Exam: Normal Inspection, Full Range of Motion Extremities: Normal Capillary Refill, Leg Pain, Limited Range of Motion, Other (Bandage in place on right leg. Bandage is dry and intact. Cooling pack in kade ce. ) Peripheral Pulses: 2+: Radial (L), Radial (R), Dorsalis Pedis (L) Skin: Warm, Dry, Intact Neurological: Cranial Nerves Intact (Grossly) Neuro Extensive - Mental Status: Alert, Oriented x3, Normal Mood/Affect Sepsis Event Note - Focused Exam Date Exam was Performed: 09/15/19 Time Exam was Performed: 11:24 Consult PN Assessment/Plan POD#: 0 Procedures: Procedures AIRWAY INHALATION TREATMENT (03/06/19) COMPLETE CBC W/AUTO DIFF WBC (04/05/15) COMPREHEN METABOLIC PANEL (04/05/15) FLUOROSCOPY <1 HR PHYS/QHP (05/14/19) LIPID PANEL (04/05/15) MANUAL THERAPY 1/> REGIONS (06/20/16) MASSAGE THERAPY (06/20/16) MR-STAPH DNA AMP PROBE (04/18/19) NEUROMUSCULAR REEDUCATION (06/20/16) PT EVAL LOW COMPLEX 20 MIN (05/24/16) PT EVALUATION (03/24/15) REMOVAL OF WRIST BONE (05/14/19) REPAIR WRIST JOINTS (03/06/19) ROUTINE VENIPUNCTURE (04/05/15) THERAPEUTIC EXERCISES (06/20/16) X-RAY EXAM OF KNEE 3 (06/07/15) (1) S/P total knee arthroplasty SNOMED Code(s): 9506798928398, 143669584, 2678185290920 Code(s): Z96.659 - PRESENCE OF UNSPECIFIED ARTIFICIAL KNEE JOINT Priority: High Current Visit: Yes Qualifiers: Laterality: right Qualified Code(s): Z96.651 - Presence of right artificial knee joint (2) GERD (gastroesophageal reflux disease) SNOMED Code(s): 383749239 Code(s): K21.9 - GASTRO-ESOPHAGEAL REFLUX DISEASE WITHOUT ESOPHAGITIS Priority: Low Current Visit: No Qualifiers: Esophagitis presence: esophagitis presence not specified Qualified Code(s): K21.9 - Gastro-esophageal reflux disease without esophagitis (3) BPH (benign prostatic hyperplasia) SNOMED Code(s): 991461936 Code(s): N40.0 - BENIGN PROSTATIC HYPERPLASIA WITHOUT LOWER URINRY TRACT SYMP Priority: Low Current Visit: No Qualifiers: Lower urinary tract symptom presence: unspecified whether lower urinary tract symptoms present Qualified Code(s): N40.0 - Benign prostatic hyperplasia without lower urinary tract symptoms (4) RBBB SNOMED Code(s): 34855272 Code(s): I45.10 - UNSPECIFIED RIGHT BUNDLE-BRANCH BLOCK Priority: Medium Current Visit: Yes (5) Diastolic dysfunction SNOMED Code(s): 6451042 Code(s): I51.89 - OTHER ILL-DEFINED HEART DISEASES Priority: Medium Current Visit: Yes (6) Osteoarthritis SNOMED Code(s): 417080768 Code(s): M19.90 - UNSPECIFIED OSTEOARTHRITIS, UNSPECIFIED SITE Priority: High Current Visit: Yes Qualifiers: Osteoarthritis location: knee Osteoarthritis type: primary Laterality: right Qualified Code(s): M17.11 - Unilateral primary osteoarthritis, right knee (7) Chronic back pain SNOMED Code(s): 933620107 Code(s): M54.9 - DORSALGIA, UNSPECIFIED; G89.29 - OTHER CHRONIC PAIN Priority: High Current Visit: Yes Qualifiers: Back pain location: back pain in unspecified location Back pain laterality: unspecified Qualified Code(s): M54.9 - Dorsalgia, unspecified; G89.29 - Other chronic pain (8) Anxiety SNOMED Code(s): 70352493 Code(s): F41.9 - ANXIETY DISORDER, UNSPECIFIED Priority: Medium Current Visit: No Problem List Initiated/Reviewed/Updated: Yes Plan: I/P: Acute: S/P right total knee arthroplasty - post-operative day 0 -DVT prophylaxis and pain management per primary care team -PT/OT -IS/RT -Monitor oxygen saturation -Titrate oxygen as needed -Home medications reviewed -Vital signs stable -Monitor labs -Pre-operative Hgb was 15.2 -Pre-operative GFR was 78 Osteoarthritis of right knee -Pain management per primary care team Chronic: GERD BPH RBBB Grade 1 Diastolic dysfunction Anxiety Chronic back pain Plan: CM for discharge planning GI prophylaxis Home medications as indicated Other orders as listed above Routine AM labs He is a full code. His PCP is Dr. Farris Thank you for allowing us to participate in the care of this patient!! Requesting Provider: Dr. Zambrano Date Consult Requested: 09/15/19 Patient History Reviewed: Yes Admission H&P Reviewed: Yes Notified Requestor: Yes
[2019-09-15] MEDS ORDERED: ceFAZolin 1 GM Vial ONE (07:43)
[2019-09-15] MEDS ORDERED: Midazolam 1 MG/ML 2 ML SDV ONE (07:43)
[2019-09-15] MEDS ORDERED: Propofol 200 MG/20 ML SDV ONE ×2 (07:43→09:11)
[2019-09-15] MEDS ORDERED: Lidocaine 1% 4 ML ONE (07:43)
[2019-09-15] MEDS ORDERED: Lactated Ringers 1,000 ML ONE (08:23)
--- NOTE | 2019-09-15 08:25 | PCM.PREANE ---
Preanesthetic Assessment - Procedure Proposed Procedure: Rt TKR - Anesthesia/Transfusion/Family Hx Anesthesia History: Prior Anesthesia Without Reaction Transfusion History: No Prior Transfusion(s) Type of Transfusion Reactions: Reports: Unknown Intubation History: Unknown - Review of Systems General: No Symptoms Pulmonary: No Symptoms Cardiovascular: No Symptoms Gastrointestinal: No Symptoms Neurological: No Symptoms Other: Reports: None - Physical Assessment NPO Status Date: 09/14/19 NPO Status Time: 18:00 Vital Signs: Last Vital Signs Temp 97.8 F 09/15/19 07:10 Pulse 83 09/15/19 07:10 Resp 16 09/15/19 07:10 BP 152/81 H 09/15/19 07:10 Pulse Ox 97 09/15/19 07:10 Height: 1.83 m Weight: 131.995 kg ASA Class: 2 Mental Status: Alert & Oriented x3 Airway Class: Mallampati = 2 Dentition: Reports: Normal Dentition Thyro-Mental Finger Breadths: 3 Mouth Opening Finger Breadths: 3 ROM/Head Extension: Full Lungs: Clear to Auscultation, Normal Respiratory Effort Cardiovascular: Regular Rate, Regular Rhythm - Lab Values: Laboratory Last Values PT 10.2 SECONDS (9.7-12.0) 09/15/19 07:30 INR 0.93 09/15/19 07:30 APTT 29 SECONDS (22-31) 09/15/19 07:30 MRSA (PCR) Negative 08/27/19 13:57 - Allergies Allergies/Adverse Reactions: Allergies Allergy/AdvReac Type Severity Reaction Status Date / Time No Known Allergies Allergy Verified 09/15/19 06:34 - Acknowledgements Anesthesia Type Planned: Spinal, Regional Block (adductor block for postoperative pain) PreAnesthesia Questionnaire HEENT History: Reports: Impaired Vision Cardiovascular History: Reports: Other (See Below) Other Cardiovascular History: right bundle branch block Respiratory History: Reports: None Gastrointestinal History: Reports: GERD, Other (See Below) Other Gastrointestinal History: states he has some trouble swallowing at times if he doesn't chew his food well enough Genitourinary History: Reports: BPH 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 Musculoskeletal History: Reports: Back Pain, Chronic, Osteoarthritis Other Musculoskeletal History: degenerative joint disease Neurological History: Reports: None Psychiatric History: Reports: Anxiety Endocrine/Metabolic History: Reports: None Hematologic History: Reports: None Immunologic History: Reports: None Oncologic (Cancer) History: Reports: None Dermatologic History: Reports: None - Past Surgical History Head Surgeries/Procedures: Reports: None HEENT Surgical History: Reports: Cataract Surgery Cardiovascular Surgical History: Reports: None Respiratory Surgical History: Reports: None GI Surgical History: Reports: Colonoscopy, EGD Female Surgical History: Reports: None Male Surgical History: Reports: None Endocrine Surgical History: Reports: None Neurological Surgical History: Reports: None Musculoskeletal Surgical History: Reports: Carpal Tunnel, Hip Replacement Other Musculoskeletal Surgeries/Procedures:: left total hip 05/15/16, bilateral wrist trapezectomy, bilateral carpal tunnel release, degenerative joint disease, gout Oncologic Surgical History: Reports: None Dermatological Surgical History: Reports: None - SUBSTANCE USE Smoking Status *Q: Former Smoker Second Hand Smoke Exposure: No Days Per Week of Alcohol Use: 1 Number of Drinks Per Day: 1 Total Drinks Per Week: 1 Recreational Drug Use History: No - HOME MEDS Home Medications: Home Meds Multivitamin [Men's Multi-Vitamin] 1 tab PO DAILY 05/15/16 [History] Omeprazole 40 mg PO DAILY 03/05/19 [History] Tamsulosin [Flomax] 0.4 mg PO DAILY 03/05/19 [History] allopurinoL [Zyloprim] 300 mg PO DAILY 03/05/19 [History] Acetaminophen [Tylenol Arthritis] 650 mg PO Q4H PRN 09/12/19 [History] Aspirin 81 mg PO DAILY 09/12/19 [History] Cholecalciferol (Vitamin D3) [Vitamin D3] 5,000 unit PO DAILY 09/12/19 [History] LORazepam [Ativan] 0.5 mg PO DAILY PRN 09/12/19 [History] traMADol [Ultram] 50 mg PO Q6H PRN 09/12/19 [History] - CURRENT (IN HOUSE) MEDS Current Meds: Current Medications Acetaminophen (Tylenol) 975 mg PO ONETIME IDANIA Stop: 09/15/19 12:00 Last Admin: 09/15/19 07:22 Dose: 975 mg Documented by: Bisacodyl (Dulcolax) 5 mg PO DAILY PRN PRN Reason: Constipation Morphine Sulfate 8 mg/Epinephrine HCl 0.3 mg/Cefuroxime Sodium 750 mg/Ketorolac Tromethamine 30 mg/Sodium Chloride 7.9 ml 0 mg .XX ONETIME ONE Stop: 09/15/19 09:31 Cyclobenzaprine HCl (Flexeril) 10 mg PO TID PRN PRN Reason: Spasms Docusate Sodium (Colace) 100 mg PO BID IDANIA Famotidine (Pepcid) 20 mg PO Q12H [facility] Lactated Ringer's (Ringers, Lactated) 1,000 mls @ 125 mls/hr IV ASDIRECTED [facility] Stop: 09/15/19 23:00 Cefazolin Sodium/Dextrose 2 gm (/ Premix) 50 mls @ 100 mls/hr IV Q8H [facility] Stop: 09/16/19 08:29 Ketorolac Tromethamine (Toradol) 15 mg IVPUSH Q6H PRN PRN Reason: Pain Lidocaine/Sodium Bicarbonate (Buffered Lidocaine 1% In Ns 8.4%) 0.25 ml IDERM ONETIME PRN PRN Reason: Prior to IV Start Stop: 09/15/19 18:00 Magnesium Hydroxide (Milk Of Magnesia) 30 ml PO BID PRN PRN Reason: Constipation Morphine Sulfate (Morphine) 2 mg IVPUSH Q2H PRN PRN Reason: Breakthrough Pain Naloxone HCl (Narcan) 0.1 mg IVPUSH Q5M PRN PRN Reason: Oversedation Ondansetron HCl (Zofran) 4 mg IVPUSH Q6H PRN PRN Reason: Nausea/Vomiting Oxycodone HCl (Oxycontin) 10 mg PO ONETIME [facility] Stop: 09/15/19 12:00 Last Admin: 09/15/19 07:21 Dose: 10 mg Documented by: Oxycodone/Acetaminophen (Percocet 325-5 Mg) 1 - 2 tab PO Q4H PRN PRN Reason: Pain Pregabalin (Lyrica) 50 mg PO ONETIME [facility] Stop: 09/15/19 12:00 Last Admin: 09/15/19 07:21 Dose: 50 mg Documented by: Rivaroxaban (Xarelto) 10 mg PO DAILY [facility] Senna (Senna) 8.6 mg PO BID PRN PRN Reason: Constipation Sodium Chloride (Saline Flush) 10 ml FLUSH ASDIRECTED PRN PRN Reason: Keep Vein Open Stop: 09/15/19 18:00 Discontinued Medications Bupivacaine HCl (Sensorcaine-Mpf 0.25%) Confirm Administered Dose 30 ml .ROUTE .STK-MED ONE Stop: 09/15/19 07:30 Cefazolin Sodium (Ancef) Confirm Administered Dose 2 gm .ROUTE .STK-MED ONE Stop: 09/15/19 07:30 Cefazolin Sodium (Ancef) Confirm Administered Dose 3 gm .ROUTE .STK-MED ONE Stop: 09/15/19 07:44 Epinephrine HCl (Adrenalin) Confirm Administered Dose 1 mg .ROUTE .STK-MED ONE Stop: 09/15/19 07:13 Famotidine (Pepcid) 20 mg PO Q12H [facility] Lidocaine HCl (Xylocaine-Mpf 1%) Confirm Administered Dose 4 mls @ as directed .ROUTE .STK-MED ONE Stop: 09/15/19 07:44 Iodine (Iodine 2% Mild Tincture) Confirm Administered Dose 30 ml .ROUTE .STK-MED ONE Stop: 09/15/19 07:30 Midazolam HCl (Versed 1 Mg/Ml) Confirm Administered Dose 2 mg .ROUTE .STK-MED ONE Stop: 09/15/19 07:44 Propofol (Diprivan 20 Ml) Confirm Administered Dose 600 mg .ROUTE .STK-MED ONE Stop: 09/15/19 07:44 Ropivacaine (Naropin 0.5%) Confirm Administered Dose 30 ml .ROUTE .STK-MED ONE Stop: 09/15/19 07:13 Tranexamic Acid (Cyklokapron) Confirm Administered Dose 1,000 mg .ROUTE .STK-MED ONE Stop: 09/15/19 07:29 Vancomycin HCl (Vancomycin) Confirm Administered Dose 1 gm .ROUTE .STK-MED ONE Stop: 09/15/19 07:30
--- NOTE | 2019-09-15 08:31 | PCM.PRNOTE ---
- Free Text/Narrative Note: Postoperative regional pain control requested by surgeon. Pre-op Dx: Rt knee osteoarthritis. Post-op Rx: Total Rt knee arthroplasty. Procedure: Rt Adductor canal block with U/S guidance Requesting physician: Dr. Elier Uribe Risks and benefits discussed with the patient preoperatively including i nfection, bleeding, incomplete or failed block, possible nerve damage, local anesthetic toxicity. Permit signed. Patient after spinal anesthesia post surgery in PACU, stable , alert and awake. Time out performed. Right mid-thigh was prepped with Chloraprep x 1 and allowed to dry. Under aseptic technique, the right femoral artery and sartorius muscle were identified under ultrasound prior to needle insertion. 4" Stimuplex needle #22 G was inserted under US guidance. Under direct visualization of needle tip the injection of 0.5% Ropivacaine with 1:200k epinephrine and 6 mg of Dexamethasone, total of 30 mls in divided doses, maintaining negative aspiration was completed without problems. No local anesthetic toxicity was noted. Patient is awake, stable and tolerated the procedure well. Time: 10:02 - 10:15
[2019-09-15] MEDS ORDERED: Dexamethasone 4 MG/ML 5 ML MDV ONE (08:44)
[2019-09-15] MEDS: ceFAZolin 1 GM Vial ONE ×2 (09:10→09:20)
[2019-09-15] MEDS: Iodine/Sodium Iodide 2% Tincture 30 ML Bottle ONE ×2 (09:11→09:19)
[2019-09-15] MEDS: Morphine Sulfate 8 MG, EPINEPHrine 0.3 MG, Cefuroxime 750 MG, Ketorolac 30 MG, Sodium C... ONE ×10 (09:14→09:27)
[2019-09-15] MEDS: Vancomycin 1 GM SDV ONE ×3 (09:14→09:38)
[2019-09-15] MEDS: Bupivacaine 0.25% 10 ML SDV ONE ×2 (09:14→09:27)
[2019-09-15] MEDS ORDERED: HYDROmorphone 0.5 MG/0.5 ML Syringe IVPUSH PRN (09:55)
[2019-09-15] MEDS ORDERED: fentaNYL 100 MCG/2 ML SDV IVPUSH PRN (09:55)
--- NOTE | 2019-09-15 10:21 | PCM.POSTAN ---
POST ANESTHESIA ASSESSMENT - MENTAL STATUS Mental Status: Alert, Oriented - VITAL SIGNS Vital Signs: Post Op Vss at 0955: 122/59, HR 85, RR:12, SpO2 95% RA, T:97.8F, , Last Vital Signs Temp 97.8 F 09/15/19 09:55 Pulse 83 09/15/19 07:10 Resp 11 L 09/15/19 10:15 BP 139/71 09/15/19 10:15 Pulse Ox 95 09/15/19 10:15 - RESPIRATORY Respiratory Status: Respiratory Rate WNL, Airway Patent, O2 Saturation Stable - CARDIOVASCULAR CV Status: Pulse Rate WNL, Blood Pressure Stable - GASTROINTESTINAL GI Status: No Symptoms - PAIN Pain Score: 0 (POST sab) - POST OP HYDRATION Hydration Status: Adequate & Stable
--- NOTE | 2019-09-15 10:56 | CR ---
Right knee: AP and crosstable lateral views of the right knee were obtained. Comparison: No previous knee exam. Knee prosthesis is seen. Components are aligned. Air is noted within the soft tissues compatible with the recent surgical procedure. No underlying bony abnormality is appreciated. Impression: 1. Satisfactory postop radiographic appearance of recently placed right knee prosthesis. Diagnostic code #2 This report was dictated in MDT
--- NOTE | 2019-09-15 12:12 | PCM.OPNOTE ---
- General Post-Op/Procedure Note Date of Surgery/Procedure: 09/15/19 Operative Procedure(s): right total knee arthroplasty Pre Op Diagnosis: right knee osteoarthrosis Post-Op Diagnosis: Same Anesthesia Technique: Local, MAC, Spinal Primary Surgeon: Elier Zambrano Anesthesia Provider: Mulugeta Mcclellan Procurement Consultant: Rosa Wyatt Procurement Consultant: Kimmie Jimenez Complications: None Condition: Good Free Text/Narrative:: Intake & Output 09/14/19 09/15/19 09/15/19 22:59 06:59 14:59 Intake Total 150 Balance 150 6 femur 5 11mm 35x10
[2019-09-15] MEDS: Acetaminophen/oxyCODONE 325-5 MG Tab PO PRN ×3 (13:17→21:17)
[2019-09-15] MEDS: ceFAZolin 2 GM in Premix Bag 1 BAG IV SCH (16:03)
[2019-09-15] MEDS ORDERED: Tamsulosin 0.4 MG Cap.ER PO SCH (17:15)
[2019-09-15] MEDS: ceFAZolin 1 GM in Premix Bag 1 BAG IV SCH (20:14)
[2019-09-15] MEDS: Cyclobenzaprine 10 MG Tab PO PRN (20:17)
[2019-09-15] MEDS: Docusate Sodium 100 MG Cap PO SCH (21:15)
[2019-09-15] MEDS: Famotidine 20 MG Tab PO SCH (21:16)
[2019-09-16] MEDS: ceFAZolin 1 GM in Premix Bag 1 BAG IV SCH ×2 (00:08→07:30)
[2019-09-16] MEDS: ceFAZolin 2 GM in Premix Bag 1 BAG IV SCH ×2 (00:08→07:30)
[2019-09-16] MEDS: Acetaminophen/oxyCODONE 325-5 MG Tab PO PRN ×3 (01:23→09:26)
[2019-09-16] MEDS: Morphine Sulfate 8 MG, EPINEPHrine 0.3 MG, Cefuroxime 750 MG, Ketorolac 30 MG, Sodium C... ONE ×5 (02:32)
[2019-09-16] MEDS: Famotidine 20 MG Tab PO SCH ×2 (07:30→08:10)
--- NOTE | 2019-09-16 07:31 | PCM.CONSN ---
- General Info Date of Service: 09/16/19 Admission Dx/Problem (Free Text): Admission Diagnosis/Problem Admission Diagnosis/Problem Osteoarthritis of knee Functional Status: Reports: Pain Controlled, Tolerating Diet, Ambulating, Urinating, Incentive Spirometry. Denies: New Symptoms - Review of Systems General: Reports: No Symptoms. Denies: Fever, Chills HEENT: Reports: No Symptoms. Denies: Headaches, Sore Throat Pulmonary: Reports: No Symptoms. Denies: Shortness of Breath, Pleuritic Chest Pain, Cough, Sputum, Wheezing Cardiovascular: Reports: No Symptoms. Denies: Chest Pain, Palpitations, Dyspnea on Exertion Gastrointestinal: Reports: No Symptoms. Denies: Abdominal Pain, Constipation, Diarrhea, Nausea, Vomiting Genitourinary: Reports: No Symptoms. Denies: Pain Musculoskeletal: Reports: Leg Pain Skin: Reports: No Symptoms. Denies: Cyanosis Neurological: Reports: Difficulty Walking, Gait Disturbance. Denies: Confusion, Numbness, Tingling Psychiatric: Reports: No Symptoms - Patient Data Vitals - Most Recent: Last Vital Signs Temp 98.4 F 09/16/19 04:00 Pulse 84 09/16/19 04:00 Resp 15 09/16/19 04:00 BP 162/82 H 09/16/19 04:00 Pulse Ox 96 09/16/19 04:00 Weight - Most Recent: 298 lb 3.2 oz I&O - Last 24 Hours: Intake & Output 09/15/19 09/16/19 09/16/19 22:59 06:59 14:59 Intake Total 1170 850 Output Total 900 1600 Balance 270 -750 Lab Results Last 24 Hours: Laboratory Results - last 24 hr 09/15/19 09/16/19 09/16/19 Range/Units 07:30 05:15 05:15 WBC 14.69 H (4.23-9.07) K/mm3 RBC 4.20 L (4.63-6.08) M/mm3 Hgb 12.0 L (13.7-17.5) gm/dl Hct 37.5 L (40.1-51.0) % MCV 89.3 (79.0-92.2) fl MCH 28.6 (25.7-32.2) pg MCHC 32.0 L (32.2-35.5) g/dl RDW Std Deviation 44.5 H (35.1-43.9) fL Plt Count 289 (163-337) K/mm3 MPV 9.8 (9.4-12.3) fl PT 10.2 (9.7-12.0) SECONDS INR 0.93 APTT 29 (22-31) SECONDS Sodium 137 (136-145) mEq/L Potassium 4.3 (3.5-5.1) mEq/L Chloride 101 (98-107) mEq/L Carbon Dioxide 29 (21-32) mEq/L Anion Gap 11.3 (5-15) BUN 15 (7-18) mg/dL Creatinine 1.1 (0.7-1.3) mg/dL Est Cr Clr Drug Dosing 78.38 mL/min Estimated GFR (MDRD) > 60 (>60) mL/min BUN/Creatinine Ratio 13.6 L (14-18) Glucose 147 H (74-106) mg/dL Calcium 8.6 (8.5-10.1) mg/dL Total Bilirubin 0.5 (0.2-1.0) mg/dL AST 12 L (15-37) U/L ALT 21 (16-63) U/L Alkaline Phosphatase 82 (46-116) U/L Total Protein 6.8 (6.4-8.2) g/dl Albumin 3.3 L (3.4-5.0) g/dl Globulin 3.5 gm/dL Albumin/Globulin Ratio 0.9 L (1-2) Med Orders - Current: Current Medications Allopurinol (Zyloprim) 300 mg PO DAILY [facility] Bisacodyl (Dulcolax) 5 mg PO DAILY PRN PRN Reason: Constipation Cholecalciferol (Vitamin D3) 5,000 unit PO DAILY [facility] Cyclobenzaprine HCl (Flexeril) 10 mg PO TID PRN PRN Reason: Spasms Last Admin: 09/15/19 20:17 Dose: 10 mg Documented by: Docusate Sodium (Colace) 100 mg PO BID [facility] Last Admin: 09/15/19 21:15 Dose: 100 mg Documented by: Famotidine (Pepcid) 20 mg PO Q12H [facility] Last Admin: 09/15/19 21:16 Dose: 20 mg Documented by: Cefazolin Sodium/Dextrose 2 gm (/ Premix) 50 mls @ 100 mls/hr IV Q8H [facility] Stop: 09/16/19 08:29 Last Admin: 09/16/19 00:08 Dose: 100 mls/hr Documented by: Cefazolin Sodium/Dextrose 1 gm (/ Premix) 50 mls @ 100 mls/hr IV Q8H [facility] Stop: 09/16/19 08:29 Last Admin: 09/16/19 00:08 Dose: 100 mls/hr Documented by: Ketorolac Tromethamine (Toradol) 15 mg IVPUSH Q6H PRN PRN Reason: Pain Magnesium Hydroxide (Milk Of Magnesia) 30 ml PO BID PRN PRN Reason: Constipation Morphine Sulfate (Morphine) 2 mg IVPUSH Q2H PRN PRN Reason: Breakthrough Pain Naloxone HCl (Narcan) 0.1 mg IVPUSH Q5M PRN PRN Reason: Oversedation Ondansetron HCl (Zofran) 4 mg IVPUSH Q6H PRN PRN Reason: Nausea/Vomiting Oxycodone/Acetaminophen (Percocet 325-5 Mg) 1 - 2 tab PO Q4H PRN PRN Reason: Pain Last Admin: 09/16/19 05:28 Dose: 2 tab Documented by: Rivaroxaban (Xarelto) 10 mg PO DAILY [facility] Senna (Senna) 8.6 mg PO BID PRN PRN Reason: Constipation Tamsulosin HCl (Flomax) 0.4 mg PO DAILY@1700 [facility] Last Admin: 09/15/19 18:50 Dose: 0.4 mg Documented by: Discontinued Medications Acetaminophen (Tylenol) 975 mg PO ONETIME [facility] Stop: 09/15/19 12:00 Last Admin: 09/15/19 07:22 Dose: 975 mg Documented by: Bupivacaine HCl (Sensorcaine-Mpf 0.25%) Confirm Administered Dose 30 ml .ROUTE .STK-MED ONE Stop: 09/15/19 07:30 Last Admin: 09/15/19 09:27 Dose: 30 ml Documented by: Cefazolin Sodium (Ancef) Confirm Administered Dose 2 gm .ROUTE .STK-MED ONE Stop: 09/15/19 07:30 Last Admin: 09/15/19 09:20 Dose: 2 gm Documented by: Cefazolin Sodium (Ancef) Confirm Administered Dose 3 gm .ROUTE .STK-MED ONE Stop: 09/15/19 07:44 Morphine Sulfate 8 mg/Epinephrine HCl 0.3 mg/Cefuroxime Sodium 750 mg/Ketorolac Tromethamine 30 mg/Sodium Chloride 7.9 ml 0 mg .XX ONETIME ONE Stop: 09/15/19 09:31 Last Admin: 09/16/19 02:32 Dose: Not Given Documented by: Dexamethasone (Dexamethasone) Confirm Administered Dose 20 mg .ROUTE .STK-MED ONE Stop: 09/15/19 08:45 Epinephrine HCl (Adrenalin) Confirm Administered Dose 1 mg .ROUTE .STK-MED ONE Stop: 09/15/19 07:13 Famotidine (Pepcid) 20 mg PO Q12H [facility] Last Admin: 09/16/19 02:31 Dose: Not Given Documented by: Fentanyl (Sublimaze) 100 mcg IVPUSH ONETIME PRN PRN Reason: Pain Stop: 09/15/19 23:00 Hydromorphone HCl (Dilaudid) 0.5 mg IVPUSH ONETIME PRN PRN Reason: Pain (severe 7-10) Stop: 09/15/19 23:00 Lactated Ringer's (Ringers, Lactated) 1,000 mls @ 125 mls/hr IV ASDIRECTED [facility] Stop: 09/15/19 23:00 Last Admin: 09/15/19 07:30 Dose: 125 mls/hr Documented by: Lidocaine HCl (Xylocaine-Mpf 1%) Confirm Administered Dose 4 mls @ as directed .ROUTE .STK-MED ONE Stop: 09/15/19 07:44 Lactated Ringer's (Ringers, Lactated) Confirm Administered Dose 1,000 mls @ as directed .ROUTE .STK-MED ONE Stop: 09/15/19 08:24 Iodine (Iodine 2% Mild Tincture) Confirm Administered Dose 30 ml .ROUTE .STK-MED ONE Stop: 09/15/19 07:30 Last Admin: 09/15/19 09:19 Dose: 18 ml Documented by: Lidocaine/Sodium Bicarbonate (Buffered Lidocaine 1% In Ns 8.4%) 0.25 ml IDERM ONETIME PRN PRN Reason: Prior to IV Start Stop: 09/15/19 18:00 Midazolam HCl (Versed 1 Mg/Ml) Confirm Administered Dose 2 mg .ROUTE .STK-MED ONE Stop: 09/15/19 07:44 Oxycodone HCl (Oxycontin) 10 mg PO ONETIME [facility] Stop: 09/15/19 12:00 Last Admin: 09/15/19 07:21 Dose: 10 mg Documented by: Pregabalin (Lyrica) 50 mg PO ONETIME [facility] Stop: 09/15/19 12:00 Last Admin: 09/15/19 07:21 Dose: 50 mg Documented by: Propofol (Diprivan 20 Ml) Confirm Administered Dose 600 mg .ROUTE .STK-MED ONE Stop: 09/15/19 07:44 Propofol (Diprivan 20 Ml) Confirm Administered Dose 200 mg .ROUTE .STK-MED ONE Stop: 09/15/19 09:12 Ropivacaine (Naropin 0.5%) Confirm Administered Dose 30 ml .ROUTE .STK-MED ONE Stop: 09/15/19 07:13 Sodium Chloride (Saline Flush) 10 ml FLUSH ASDIRECTED PRN PRN Reason: Keep Vein Open Stop: 09/15/19 18:00 Tamsulosin HCl (Flomax) 0.4 mg PO DAILY [facility] Tranexamic Acid (Cyklokapron) Confirm Administered Dose 1,000 mg .ROUTE .STK-MED ONE Stop: 09/15/19 07:29 Last Admin: 09/15/19 09:37 Dose: 1,000 mg Documented by: Vancomycin HCl (Vancomycin) Confirm Administered Dose 1 gm .ROUTE .STK-MED ONE Stop: 09/15/19 07:30 Last Admin: 09/15/19 09:38 Dose: 1 gm Documented by: - Exam Quality Assessment: DVT Prophylaxis. No: Supplemental Oxygen, Urine Catheter General: Alert, Oriented, Cooperative HEENT: Pupils Equal, Pupils Reactive, Mucous Membr. Moist/[place] Neck: Supple, Trachea Midline Lungs: Clear to Auscultation, Normal Respiratory Effort Cardiovascular: Regular Rate, Regular Rhythm GI/Abdominal Exam: Normal Bowel Sounds, Soft, Non-Tender, No Organomegaly, No Distention (Male) Exam: Deferred Back Exam: Normal Inspection, Decreased Range of Motion Extremities: Normal Capillary Refill, Leg Pain, Limited Range of Motion, Other (Bandage in place on right leg. Cooling pack in place. ) Peripheral Pulses: 2+: Radial (L), Radial (R), Dorsalis Pedis (L), Dorsalis Pedis (R) Skin: Warm, Dry, Intact Wound/Incisions: Dressing Dry and Intact Neurological: No New Focal Deficit Psy/Mental Status: Alert, Normal Affect, Normal Mood Sepsis Event Note - Evaluation Sepsis Screening Result: No Definite Risk - Focused Exam Vital Signs: Vital Signs Temp Temp Temp Pulse Pulse Resp BP 09/16/19 04:00 98.4 F 84 15 09/16/19 00:00 98.0 F 81 16 09/15/19 20:01 98.1 F 94 16 124/91 H 09/15/19 20:00 98.1 F 94 16 BP Pulse Ox 09/16/19 04:00 162/82 H 96 09/16/19 00:00 150/79 H 95 09/15/19 20:01 92 L 09/15/19 20:00 124/91 H 92 L Date Exam was Performed: 09/16/19 Time Exam was Performed: 09:48 Consult PN Assessment/Plan POD#: 1 Procedures: Procedures AIRWAY INHALATION TREATMENT (03/06/19) COMPLETE CBC W/AUTO DIFF WBC (04/05/15) COMPREHEN METABOLIC PANEL (04/05/15) FLUOROSCOPY <1 HR PHYS/QHP (05/14/19) LIPID PANEL (04/05/15) MANUAL THERAPY 1/> REGIONS (06/20/16) MASSAGE THERAPY (06/20/16) MR-STAPH DNA AMP PROBE (04/18/19) NEUROMUSCULAR REEDUCATION (06/20/16) PT EVAL LOW COMPLEX 20 MIN (05/24/16) PT EVALUATION (03/24/15) REMOVAL OF WRIST BONE (05/14/19) REPAIR WRIST JOINTS (03/06/19) ROUTINE VENIPUNCTURE (04/05/15) THERAPEUTIC EXERCISES (06/20/16) X-RAY EXAM OF KNEE 3 (06/07/15) (1) S/P total knee arthroplasty SNOMED Code(s): 0292807476220, 407517821, 7286932685258 Code(s): Z96.659 - PRESENCE OF UNSPECIFIED ARTIFICIAL KNEE JOINT Priority: High Current Visit: Yes Qualifiers: Laterality: right Qualified Code(s): Z96.651 - Presence of right artificial knee joint (2) GERD (gastroesophageal reflux disease) SNOMED Code(s): 261297069 Code(s): K21.9 - GASTRO-ESOPHAGEAL REFLUX DISEASE WITHOUT ESOPHAGITIS Priority: Low Current Visit: No Qualifiers: Esophagitis presence: esophagitis presence not specified Qualified Code(s): K21.9 - Gastro-esophageal reflux disease without esophagitis (3) BPH (benign prostatic hyperplasia) SNOMED Code(s): 494223846 Code(s): N40.0 - BENIGN PROSTATIC HYPERPLASIA WITHOUT LOWER URINRY TRACT SYMP Priority: Low Current Visit: No Qualifiers: Lower urinary tract symptom presence: unspecified whether lower urinary tract symptoms present Qualified Code(s): N40.0 - Benign prostatic hyperplasia without lower urinary tract symptoms (4) RBBB SNOMED Code(s): 15658935 Code(s): I45.10 - UNSPECIFIED RIGHT BUNDLE-BRANCH BLOCK Priority: Medium Current Visit: Yes (5) Diastolic dysfunction SNOMED Code(s): 2760006 Code(s): I51.89 - OTHER ILL-DEFINED HEART DISEASES Priority: Medium Current Visit: Yes (6) Osteoarthritis SNOMED Code(s): 307914683 Code(s): M19.90 - UNSPECIFIED OSTEOARTHRITIS, UNSPECIFIED SITE Priority: High Current Visit: Yes Qualifiers: Osteoarthritis location: knee Osteoarthritis type: primary Laterality: right Qualified Code(s): M17.11 - Unilateral primary osteoarthritis, right knee (7) Chronic back pain SNOMED Code(s): 389919256 Code(s): M54.9 - DORSALGIA, UNSPECIFIED; G89.29 - OTHER CHRONIC PAIN Priority: High Current Visit: Yes Qualifiers: Back pain location: back pain in unspecified location Back pain laterality: unspecified Qualified Code(s): M54.9 - Dorsalgia, unspecified; G89.29 - Other chronic pain (8) Anxiety SNOMED Code(s): 81515995 Code(s): F41.9 - ANXIETY DISORDER, UNSPECIFIED Priority: Medium Current Visit: No Problem List Initiated/Reviewed/Updated: Yes My Orders Last 24 Hours: My Active Orders 09/16/19 09:00 Cholecalciferol (Vitamin D3) [Vitamin D3] 5,000 unit PO DAILY allopurinoL [Zyloprim] 300 mg PO DAILY Plan: I/P: Acute: S/P right total knee arthroplasty - post-operative day 1 -DVT prophylaxis and pain management per primary care team -PT/OT -IS/RT -Monitor oxygen saturation -Titrate oxygen as needed -Home medications reviewed -Vital signs stable -Monitor labs -Pre-operative Hgb was 15.2; Now 12.0 -Pre-operative GFR was 78; Now >60 Osteoarthritis of right knee -Pain management per primary care team Chronic: GERD BPH RBBB Grade 1 Diastolic dysfunction Anxiety Chronic back pain Plan: CM for discharge planning GI prophylaxis Home medications as indicated Other orders as listed above Routine AM labs He is a full code. His PCP is Dr. Farris From a hospitalist standpoint Guille is doing well. He has been up ambulating and working with therapies. He has urinated and is off of oxygen. His pain is controlled. His labs and vital signs remain stable. He is cleared for discharge pending primary team and PT/OT agreement. Thank you for allowing us to participate in the care of this patient!!
[2019-09-16 07:43] VITALS: BP 141/71; PULSE 87
[2019-09-16] MEDS: Cyclobenzaprine 10 MG Tab PO PRN (08:09)
[2019-09-16] MEDS: Docusate Sodium 100 MG Cap PO SCH (08:09)
--- NOTE | 2019-09-16 08:17 | PCM.SURGPN ---
- General Info Date of Service: 09/16/19 POD#: 1 Functional Status: Reports: Pain Controlled, Tolerating Diet, Ambulating, Urinating, Incentive Spirometry, Other (The pt states he has noted spasm at quad. He has been walking in the halls.) - Patient Data Vitals - Most Recent: Last Vital Signs Temp 97.9 F 09/16/19 07:42 Pulse 87 09/16/19 07:42 Resp 18 09/16/19 07:31 BP 141/71 H 09/16/19 07:31 Pulse Ox 95 09/16/19 07:42 Weight - Most Recent: 298 lb 3.2 oz I&O - Last 24 Hours: Intake & Output 09/15/19 09/16/19 09/16/19 22:59 06:59 14:59 Intake Total 1170 850 Output Total 900 1600 Balance 270 -750 Lab Results Last 24 Hrs: Laboratory Results - last 24 hr 09/16/19 09/16/19 Range/Units 05:15 05:15 WBC 14.69 H (4.23-9.07) K/mm3 RBC 4.20 L (4.63-6.08) M/mm3 Hgb 12.0 L (13.7-17.5) gm/dl Hct 37.5 L (40.1-51.0) % MCV 89.3 (79.0-92.2) fl MCH 28.6 (25.7-32.2) pg MCHC 32.0 L (32.2-35.5) g/dl RDW Std Deviation 44.5 H (35.1-43.9) fL Plt Count 289 (163-337) K/mm3 MPV 9.8 (9.4-12.3) fl Sodium 137 (136-145) mEq/L Potassium 4.3 (3.5-5.1) mEq/L Chloride 101 (98-107) mEq/L Carbon Dioxide 29 (21-32) mEq/L Anion Gap 11.3 (5-15) BUN 15 (7-18) mg/dL Creatinine 1.1 (0.7-1.3) mg/dL Est Cr Clr Drug Dosing 78.38 mL/min Estimated GFR (MDRD) > 60 (>60) mL/min BUN/Creatinine Ratio 13.6 L (14-18) Glucose 147 H (74-106) mg/dL Calcium 8.6 (8.5-10.1) mg/dL Total Bilirubin 0.5 (0.2-1.0) mg/dL AST 12 L (15-37) U/L ALT 21 (16-63) U/L Alkaline Phosphatase 82 (46-116) U/L Total Protein 6.8 (6.4-8.2) g/dl Albumin 3.3 L (3.4-5.0) g/dl Globulin 3.5 gm/dL Albumin/Globulin Ratio 0.9 L (1-2) Med Orders - Current: Current Medications Allopurinol (Zyloprim) 300 mg PO DAILY [facility] Last Admin: 09/16/19 08:09 Dose: 300 mg Documented by: Bisacodyl (Dulcolax) 5 mg PO DAILY PRN PRN Reason: Constipation Cholecalciferol (Vitamin D3) 5,000 unit PO DAILY [facility] Cyclobenzaprine HCl (Flexeril) 10 mg PO TID PRN PRN Reason: Spasms Last Admin: 09/16/19 08:09 Dose: 10 mg Documented by: Docusate Sodium (Colace) 100 mg PO BID [facility] Last Admin: 09/16/19 08:09 Dose: 100 mg Documented by: Famotidine (Pepcid) 20 mg PO Q12H [facility] Last Admin: 09/16/19 08:10 Dose: Not Given Documented by: Cefazolin Sodium/Dextrose 2 gm (/ Premix) 50 mls @ 100 mls/hr IV Q8H [facility] Stop: 09/16/19 08:29 Last Admin: 09/16/19 07:30 Dose: 100 mls/hr Documented by: Cefazolin Sodium/Dextrose 1 gm (/ Premix) 50 mls @ 100 mls/hr IV Q8H [facility] Stop: 09/16/19 08:29 Last Admin: 09/16/19 07:30 Dose: 100 mls/hr Documented by: Ketorolac Tromethamine (Toradol) 15 mg IVPUSH Q6H PRN PRN Reason: Pain Magnesium Hydroxide (Milk Of Magnesia) 30 ml PO BID PRN PRN Reason: Constipation Morphine Sulfate (Morphine) 2 mg IVPUSH Q2H PRN PRN Reason: Breakthrough Pain Naloxone HCl (Narcan) 0.1 mg IVPUSH Q5M PRN PRN Reason: Oversedation Ondansetron HCl (Zofran) 4 mg IVPUSH Q6H PRN PRN Reason: Nausea/Vomiting Oxycodone/Acetaminophen (Percocet 325-5 Mg) 1 - 2 tab PO Q4H PRN PRN Reason: Pain Last Admin: 09/16/19 05:28 Dose: 2 tab Documented by: Rivaroxaban (Xarelto) 10 mg PO DAILY [facility] Last Admin: 09/16/19 08:09 Dose: 10 mg Documented by: Senna (Senna) 8.6 mg PO BID PRN PRN Reason: Constipation Tamsulosin HCl (Flomax) 0.4 mg PO DAILY@1700 [facility] Last Admin: 09/15/19 18:50 Dose: 0.4 mg Documented by: Discontinued Medications Acetaminophen (Tylenol) 975 mg PO ONETIME [facility] Stop: 09/15/19 12:00 Last Admin: 09/15/19 07:22 Dose: 975 mg Documented by: Bupivacaine HCl (Sensorcaine-Mpf 0.25%) Confirm Administered Dose 30 ml .ROUTE .STK-MED ONE Stop: 09/15/19 07:30 Last Admin: 09/15/19 09:27 Dose: 30 ml Documented by: Cefazolin Sodium (Ancef) Confirm Administered Dose 2 gm .ROUTE .STK-MED ONE Stop: 09/15/19 07:30 Last Admin: 09/15/19 09:20 Dose: 2 gm Documented by: Cefazolin Sodium (Ancef) Confirm Administered Dose 3 gm .ROUTE .STK-MED ONE Stop: 09/15/19 07:44 Morphine Sulfate 8 mg/Epinephrine HCl 0.3 mg/Cefuroxime Sodium 750 mg/Ketorolac Tromethamine 30 mg/Sodium Chloride 7.9 ml 0 mg .XX ONETIME ONE Stop: 09/15/19 09:31 Last Admin: 09/16/19 02:32 Dose: Not Given Documented by: Dexamethasone (Dexamethasone) Confirm Administered Dose 20 mg .ROUTE .STK-MED ONE Stop: 09/15/19 08:45 Epinephrine HCl (Adrenalin) Confirm Administered Dose 1 mg .ROUTE .STK-MED ONE Stop: 09/15/19 07:13 Famotidine (Pepcid) 20 mg PO Q12H [facility] Last Admin: 09/16/19 02:31 Dose: Not Given Documented by: Fentanyl (Sublimaze) 100 mcg IVPUSH ONETIME PRN PRN Reason: Pain Stop: 09/15/19 23:00 Hydromorphone HCl (Dilaudid) 0.5 mg IVPUSH ONETIME PRN PRN Reason: Pain (severe 7-10) Stop: 09/15/19 23:00 Lactated Ringer's (Ringers, Lactated) 1,000 mls @ 125 mls/hr IV ASDIRECTED [facility] Stop: 09/15/19 23:00 Last Admin: 09/15/19 07:30 Dose: 125 mls/hr Documented by: Lidocaine HCl (Xylocaine-Mpf 1%) Confirm Administered Dose 4 mls @ as directed .ROUTE .STK-MED ONE Stop: 09/15/19 07:44 Lactated Ringer's (Ringers, Lactated) Confirm Administered Dose 1,000 mls @ as directed .ROUTE .STK-MED ONE Stop: 09/15/19 08:24 Iodine (Iodine 2% Mild Tincture) Confirm Administered Dose 30 ml .ROUTE .STK-MED ONE Stop: 09/15/19 07:30 Last Admin: 09/15/19 09:19 Dose: 18 ml Documented by: Lidocaine/Sodium Bicarbonate (Buffered Lidocaine 1% In Ns 8.4%) 0.25 ml IDERM ONETIME PRN PRN Reason: Prior to IV Start Stop: 09/15/19 18:00 Midazolam HCl (Versed 1 Mg/Ml) Confirm Administered Dose 2 mg .ROUTE .STK-MED ONE Stop: 09/15/19 07:44 Oxycodone HCl (Oxycontin) 10 mg PO ONETIME [facility] Stop: 09/15/19 12:00 Last Admin: 09/15/19 07:21 Dose: 10 mg Documented by: Pregabalin (Lyrica) 50 mg PO ONETIME [facility] Stop: 09/15/19 12:00 Last Admin: 09/15/19 07:21 Dose: 50 mg Documented by: Propofol (Diprivan 20 Ml) Confirm Administered Dose 600 mg .ROUTE .STK-MED ONE Stop: 09/15/19 07:44 Propofol (Diprivan 20 Ml) Confirm Administered Dose 200 mg .ROUTE .STK-MED ONE Stop: 09/15/19 09:12 Ropivacaine (Naropin 0.5%) Confirm Administered Dose 30 ml .ROUTE .STK-MED ONE Stop: 09/15/19 07:13 Sodium Chloride (Saline Flush) 10 ml FLUSH ASDIRECTED PRN PRN Reason: Keep Vein Open Stop: 09/15/19 18:00 Tamsulosin HCl (Flomax) 0.4 mg PO DAILY [facility] Tranexamic Acid (Cyklokapron) Confirm Administered Dose 1,000 mg .ROUTE .STK-MED ONE Stop: 09/15/19 07:29 Last Admin: 09/15/19 09:37 Dose: 1,000 mg Documented by: Vancomycin HCl (Vancomycin) Confirm Administered Dose 1 gm .ROUTE .STK-MED ONE Stop: 09/15/19 07:30 Last Admin: 09/15/19 09:38 Dose: 1 gm Documented by: - Exam Wound/Incisions: Dressing Dry and Intact General: Alert, Cooperative, No Acute Distress Lungs: Normal Respiratory Effort Extremities: Other (NVS intact for BLE. Wallace's negative.) Sepsis Event Note - Evaluation Sepsis Screening Result: No Definite Risk - Focused Exam Vital Signs: Vital Signs Temp Temp Pulse Pulse Resp BP BP 09/16/19 07:42 97.9 F 87 09/16/19 07:31 81 18 141/71 H 09/16/19 04:00 98.4 F 84 15 162/82 H 09/16/19 00:00 98.0 F 81 16 150/79 H Pulse Ox 09/16/19 07:42 95 09/16/19 07:31 96 09/16/19 04:00 96 09/16/19 00:00 95 Date Exam was Performed: 09/16/19 Time Exam was Performed: 08:16 - Problem List Review Problem List Initiated/Reviewed/Updated: Yes - My Orders Last 24 Hours: Active Orders 24 hr Category Date Time Status Communication Order [RC] ASDIRECTED Care 09/16/19 08:16 Ordered Oxygen Therapy [RC] ASDIRECTED Care 09/15/19 09:55 Active Pulse Oximetry [RC] ASDIRECTED Care 09/15/19 09:55 Active Ready for Discharge [RC] PER UNIT ROUTINE Care 09/16/19 08:15 Ordered Regular Diet [DIET] Diet 09/15/19 Lunch Active Cholecalciferol (Vitamin D3) [Vitamin D3] Med 09/16/19 09:00 Active 5,000 unit PO DAILY Docusate Sodium [Colace] Med 09/15/19 21:00 Active 100 mg PO BID Famotidine [Pepcid] Med 09/15/19 21:00 Active 20 mg PO Q12H Rivaroxaban [Xarelto] Med 09/16/19 09:00 Active 10 mg PO DAILY Tamsulosin [Flomax] Med 09/15/19 17:15 Active 0.4 mg PO DAILY@1700 allopurinoL [Zyloprim] Med 09/16/19 09:00 Active 300 mg PO DAILY ceFAZolin [Ancef] 1 gm Med 09/15/19 16:00 Active Premix Bag 1 bag IV Q8H ceFAZolin [Ancef] 2 gm Med 09/15/19 16:00 Active Premix Bag 1 bag IV Q8H Medication Orders Allopurinol (Zyloprim) 300 mg PO DAILY [facility] Last Admin: 09/16/19 08:09 Dose: 300 mg Documented by: DAVID Bisacodyl (Dulcolax) 5 mg PO DAILY PRN PRN Reason: Constipation Cholecalciferol (Vitamin D3) 5,000 unit PO DAILY [facility] Cyclobenzaprine HCl (Flexeril) 10 mg PO TID PRN PRN Reason: Spasms Last Admin: 09/16/19 08:09 Dose: 10 mg Documented by: Admin: 09/15/19 20:17 Dose: 10 mg Documented by: MARIA ESTHER Docusate Sodium (Colace) 100 mg PO BID [facility] Last Admin: 09/16/19 08:09 Dose: 100 mg Documented by: Admin: 09/15/19 21:15 Dose: 100 mg Documented by: EARNEST Famotidine (Pepcid) 20 mg PO Q12H [facility] Last Admin: 09/16/19 08:10 Dose: Not Given Documented by: Admin: 09/16/19 07:30 Dose: 20 mg Documented by: Admin: 09/15/19 21:16 Dose: 20 mg Documented by: EARNEST Cefazolin Sodium/Dextrose 2 gm (/ Premix) 50 mls @ 100 mls/hr IV Q8H [facility] Stop: 09/16/19 08:29 Last Admin: 09/16/19 07:30 Dose: 100 mls/hr Documented by: Infusion: 09/16/19 00:38 Dose: 100 mls/hr Documented by: Admin: 09/16/19 00:08 Dose: 100 mls/hr Documented by: Infusion: 09/15/19 16:33 Dose: 100 mls/hr Documented by: Admin: 09/15/19 16:03 Dose: 100 mls/hr Documented by: MARIA ESTHER Cefazolin Sodium/Dextrose 1 gm (/ Premix) 50 mls @ 100 mls/hr IV Q8H [facility] Stop: 09/16/19 08:29 Last Admin: 09/16/19 07:30 Dose: 100 mls/hr Documented by: Infusion: 09/16/19 00:38 Dose: 100 mls/hr Documented by: Admin: 09/16/19 00:08 Dose: 100 mls/hr Documented by: Infusion: 09/15/19 20:44 Dose: 100 mls/hr Documented by: Admin: 09/15/19 20:14 Dose: 100 mls/hr Documented by: MARIA ESTHER Ketorolac Tromethamine (Toradol) 15 mg IVPUSH Q6H PRN PRN Reason: Pain Magnesium Hydroxide (Milk Of Magnesia) 30 ml PO BID PRN PRN Reason: Constipation Morphine Sulfate (Morphine) 2 mg IVPUSH Q2H PRN PRN Reason: Breakthrough Pain Naloxone HCl (Narcan) 0.1 mg IVPUSH Q5M PRN PRN Reason: Oversedation Ondansetron HCl (Zofran) 4 mg IVPUSH Q6H PRN PRN Reason: Nausea/Vomiting Oxycodone/Acetaminophen (Percocet 325-5 Mg) 1 - 2 tab PO Q4H PRN PRN Reason: Pain Last Admin: 09/16/19 05:28 Dose: 2 tab Documented by: Admin: 09/16/19 01:23 Dose: 2 tab Documented by: Admin: 09/15/19 21:17 Dose: 2 tab Documented by: Admin: 09/15/19 17:17 Dose: 2 tab Documented by: MARIA ESTHER Admin: 09/15/19 13:17 Dose: 2 tab Documented by: DIANA Rivaroxaban (Xarelto) 10 mg PO DAILY [facility] Last Admin: 09/16/19 08:09 Dose: 10 mg Documented by: DAVID Noble (Senna) 8.6 mg PO BID PRN PRN Reason: Constipation Tamsulosin HCl (Flomax) 0.4 mg PO DAILY@1700 [facility] Last Admin: 09/15/19 18:50 Dose: 0.4 mg Documented by: MARIA ESTHER - Assessment Assessment (Free Text/Narrative):: POD#1 - right TKA - Plan Plan (Free Text/Narrative):: 1. Hgb 12.0. 2. Discharge to home today. 3. Xarelto 10mg PO daily (family hx VTE), frequent mobility, TEDs. 4. Outpatient therapy. The pt's case was discussed with Dr. Zambrano today.
--- NOTE | 2019-09-16 08:52 | PCM.DCSUM1 ---
Discharge Summary - Hospital Course Brief History: Guille is a 59 yo male who underwent right TKA with Dr. Zambrano on 09-15-2019. The procedure was completed under spinal anesthesia with sedation. A post-operative adductor canal block was provided. The pt tolerated the procedure well and was admitted to the Medical-Surgical Unit. Medical management was provided by the Hospitalist service. The pt's Hospital course was uneventful. The pt's Hgb on POD#1 was 11.3. On POD#1, Xarelto 10mg PO daily was initiated for VTE prophylaxis. SCDs and TEDs were also ordered. A Mepilex dressing was placed at the incision site at the time of surgery and remained clean and dry. The pt participated in P.T. and O.T. and progressed well. The pt was allowed to WBAT and used a FWW for mobility. On POD#1, the pt was deemed appropriate to discharge to home with his . - Discharge Data Discharge Date: 09/16/19 Discharge Disposition: Home, Self-Care 01 Condition: Good - Referral to Home Health Primary Care Physician: Spencer Farris Jr, MD - Patient Summary/Data Operative Procedure(s) Performed: right total knee arthroplasty Consults: Consultations 09/15/19 06:00 OT Evaluation and Treatment [CONS] Routine PT Evaluation and Treatment [CONS] Routine 09/15/19 06:01 Consult to Physician [CONS] Routine - Patient Instructions Diet: Usual Diet as Tolerated Activity: Apply Ice, As Tolerated, Elevate Extremity, Full Weight Bearing Driving: Do Not Drive Showering/Bathing: May Shower Wound/Incision Care: Keep Operative Site/Wound Site Clean and Dry, Do NOT Change Dressing Notify Provider of: Fever, Increased Pain, Swelling and Redness, Drainage, Nausea and/or Vomiting Other/Special Instructions: Please get up and moving around EVERY HOUR while awake. This helps to prevent blood clots. Please use your walker and have help with mobility as needed. Take a short walk in your home every hour while awake. Please take the Xarelto blood thinner medication daily as directed. At home, please complete the exercises that you learned during the Hospital stay. Schedule for physical therapy. Use the pain medication as needed. The medication may cause drowsiness and constipation. Contact your primary care provider for instructions if you are constipated. You may use a stool softener like docusate sodium or Colace 100mg twice daily and/or a laxative like Miralax daily for constipation. Increase your water and fiber intake while you are using the pain medication. Discontinue use of the pain medication as soon as able. Please do not use other medications that may cause drowsiness (other pain medications, anxiety pills, cold medications, sleeping pills, etc) while using the prescription pain medication. Do not use alcohol while using the pain medication. You may use acetaminophen or Tylenol for pain management, however, please ensure you are not using over 4000 mg or 4 grams of acetaminophen per day from all sources. Your pain medication has 325mg of acetaminophen per tablet. At this time, please do not use ibuprofen (Motrin, Advil) or naproxen (Aleve) for pain management as you are using the Xarelto. When the Xarelto course is completed in 4 to 6 weeks, you could use ibuprofen or naproxen for pain management (if this is allowed by your primary care provider). Wear the ADAM hose during the day and you may remove these at night. Elevate the limb to decrease swelling. Place ice to the area often. Place a towel between your skin and the blue pad. Use the incentive spirometer often. Take deep breaths throughout the day. Please keep the dressing in place until follow-up. Notify the Clinic if the dressing becomes saturated. Increase your protein intake while you are healing. Call the Clinic with questions or concerns - [phone] and leave a message for the nurse. - Discharge Plan *PRESCRIPTION DRUG MONITORING PROGRAM REVIEWED*: No *COPY OF PRESCRIPTION DRUG MONITORING REPORT IN PATIENT VERONICA: No Prescriptions/Med Rec: Cyclobenzaprine [Flexeril] 10 mg PO TID PRN #30 tablet PRN Reason: Spasms Acetaminophen/oxyCODONE [Percocet 325-5 MG] 1 - 2 tab PO Q4H PRN #60 tablet PRN Reason: Pain Rivaroxaban [Xarelto] 10 mg PO DAILY #30 tablet Home Medications: Home Meds Multivitamin [Men's Multi-Vitamin] 1 tab PO DAILY 05/15/16 [History] Omeprazole 40 mg PO DAILY 03/05/19 [History] Tamsulosin [Flomax] 0.4 mg PO DAILY 03/05/19 [History] allopurinoL [Zyloprim] 300 mg PO DAILY 03/05/19 [History] Cholecalciferol (Vitamin D3) [Vitamin D3] 5,000 unit PO DAILY 09/12/19 [History] LORazepam [Ativan] 0.5 mg PO DAILY PRN 09/12/19 [History] Acetaminophen/oxyCODONE [Percocet 325-5 MG] 1 - 2 tab PO Q4H PRN #60 tablet 09/16/19 [Rx] Cyclobenzaprine [Flexeril] 10 mg PO TID PRN #30 tablet 09/16/19 [Rx] Docusate Sodium [Colace] 100 mg PO BID cap 09/16/19 [Rx] Magnesium Hydroxide [Milk of Magnesia] 30 ml PO BID PRN cup 09/16/19 [Rx] Rivaroxaban [Xarelto] 10 mg PO DAILY #30 tablet 09/16/19 [Rx] Sennosides [Senna] 8.6 mg PO BID PRN tablet 09/16/19 [Rx] bisacodyL [Dulcolax] 5 mg PO DAILY PRN tablet 09/16/19 [Rx] Patient Handouts: Total Knee Replacement, [id number] Referrals: Rosa Wyatt PA-C [Physician Furniture And Bedding Inspector] - 09/23/19 10:00 am ([facility] with Rosa Wyatt on September 22 @ 10am.) - Discharge Summary/Plan Comment DC Time >30 min.: No - Patient Data Vitals - Most Recent: Last Vital Signs Temp 97.9 F 09/16/19 07:42 Pulse 87 09/16/19 07:42 Resp 18 09/16/19 07:31 BP 141/71 H 09/16/19 07:31 Pulse Ox 95 09/16/19 07:42 Weight - Most Recent: 298 lb 3.2 oz I&O - Last 24 hours: Intake & Output 09/15/19 09/16/19 09/16/19 22:59 06:59 14:59 Intake Total 1170 850 Output Total 900 1600 Balance 270 -750 Lab Results - Last 24 hrs: Laboratory Results - last 24 hr 09/16/19 09/16/19 Range/Units 05:15 05:15 WBC 14.69 H (4.23-9.07) K/mm3 RBC 4.20 L (4.63-6.08) M/mm3 Hgb 12.0 L (13.7-17.5) gm/dl Hct 37.5 L (40.1-51.0) % MCV 89.3 (79.0-92.2) fl MCH 28.6 (25.7-32.2) pg MCHC 32.0 L (32.2-35.5) g/dl RDW Std Deviation 44.5 H (35.1-43.9) fL Plt Count 289 (163-337) K/mm3 MPV 9.8 (9.4-12.3) fl Sodium 137 (136-145) mEq/L Potassium 4.3 (3.5-5.1) mEq/L Chloride 101 (98-107) mEq/L Carbon Dioxide 29 (21-32) mEq/L Anion Gap 11.3 (5-15) BUN 15 (7-18) mg/dL Creatinine 1.1 (0.7-1.3) mg/dL Est Cr Clr Drug Dosing 78.38 mL/min Estimated GFR (MDRD) > 60 (>60) mL/min BUN/Creatinine Ratio 13.6 L (14-18) Glucose 147 H (74-106) mg/dL Calcium 8.6 (8.5-10.1) mg/dL Total Bilirubin 0.5 (0.2-1.0) mg/dL AST 12 L (15-37) U/L ALT 21 (16-63) U/L Alkaline Phosphatase 82 (46-116) U/L Total Protein 6.8 (6.4-8.2) g/dl Albumin 3.3 L (3.4-5.0) g/dl Globulin 3.5 gm/dL Albumin/Globulin Ratio 0.9 L (1-2) Med Orders - Current: Current Medications Allopurinol (Zyloprim) 300 mg PO DAILY [facility] Last Admin: 09/16/19 08:09 Dose: 300 mg Documented by: Bisacodyl (Dulcolax) 5 mg PO DAILY PRN PRN Reason: Constipation Cholecalciferol (Vitamin D3) 5,000 unit PO DAILY [facility] Cyclobenzaprine HCl (Flexeril) 10 mg PO TID PRN PRN Reason: Spasms Last Admin: 09/16/19 08:09 Dose: 10 mg Documented by: Docusate Sodium (Colace) 100 mg PO BID [facility] Last Admin: 09/16/19 08:09 Dose: 100 mg Documented by: Famotidine (Pepcid) 20 mg PO Q12H [facility] Last Admin: 09/16/19 08:10 Dose: Not Given Documented by: Ketorolac Tromethamine (Toradol) 15 mg IVPUSH Q6H PRN PRN Reason: Pain Magnesium Hydroxide (Milk Of Magnesia) 30 ml PO BID PRN PRN Reason: Constipation Morphine Sulfate (Morphine) 2 mg IVPUSH Q2H PRN PRN Reason: Breakthrough Pain Naloxone HCl (Narcan) 0.1 mg IVPUSH Q5M PRN PRN Reason: Oversedation Ondansetron HCl (Zofran) 4 mg IVPUSH Q6H PRN PRN Reason: Nausea/Vomiting Oxycodone/Acetaminophen (Percocet 325-5 Mg) 1 - 2 tab PO Q4H PRN PRN Reason: Pain Last Admin: 09/16/19 05:28 Dose: 2 tab Documented by: Rivaroxaban (Xarelto) 10 mg PO DAILY [facility] Last Admin: 09/16/19 08:09 Dose: 10 mg Documented by: Senna (Senna) 8.6 mg PO BID PRN PRN Reason: Constipation Tamsulosin HCl (Flomax) 0.4 mg PO DAILY@1700 [facility] Last Admin: 09/15/19 18:50 Dose: 0.4 mg Documented by: Discontinued Medications Acetaminophen (Tylenol) 975 mg PO ONETIME [facility] Stop: 09/15/19 12:00 Last Admin: 09/15/19 07:22 Dose: 975 mg Documented by: Bupivacaine HCl (Sensorcaine-Mpf 0.25%) Confirm Administered Dose 30 ml .ROUTE .STK-MED ONE Stop: 09/15/19 07:30 Last Admin: 09/15/19 09:27 Dose: 30 ml Documented by: Cefazolin Sodium (Ancef) Confirm Administered Dose 2 gm .ROUTE .STK-MED ONE Stop: 09/15/19 07:30 Last Admin: 09/15/19 09:20 Dose: 2 gm Documented by: Cefazolin Sodium (Ancef) Confirm Administered Dose 3 gm .ROUTE .STK-MED ONE Stop: 09/15/19 07:44 Morphine Sulfate 8 mg/Epinephrine HCl 0.3 mg/Cefuroxime Sodium 750 mg/Ketorolac Tromethamine 30 mg/Sodium Chloride 7.9 ml 0 mg .XX ONETIME ONE Stop: 09/15/19 09:31 Last Admin: 09/16/19 02:32 Dose: Not Given Documented by: Dexamethasone (Dexamethasone) Confirm Administered Dose 20 mg .ROUTE .STK-MED ONE Stop: 09/15/19 08:45 Epinephrine HCl (Adrenalin) Confirm Administered Dose 1 mg .ROUTE .STK-MED ONE Stop: 09/15/19 07:13 Famotidine (Pepcid) 20 mg PO Q12H [facility] Last Admin: 09/16/19 02:31 Dose: Not Given Documented by: Fentanyl (Sublimaze) 100 mcg IVPUSH ONETIME PRN PRN Reason: Pain Stop: 09/15/19 23:00 Hydromorphone HCl (Dilaudid) 0.5 mg IVPUSH ONETIME PRN PRN Reason: Pain (severe 7-10) Stop: 09/15/19 23:00 Lactated Ringer's (Ringers, Lactated) 1,000 mls @ 125 mls/hr IV ASDIRECTED [facility] Stop: 09/15/19 23:00 Last Admin: 09/15/19 07:30 Dose: 125 mls/hr Documented by: Cefazolin Sodium/Dextrose 2 gm (/ Premix) 50 mls @ 100 mls/hr IV Q8H [facility] Stop: 09/16/19 08:29 Last Admin: 09/16/19 07:30 Dose: 100 mls/hr Documented by: Lidocaine HCl (Xylocaine-Mpf 1%) Confirm Administered Dose 4 mls @ as directed .ROUTE .STK-MED ONE Stop: 09/15/19 07:44 Lactated Ringer's (Ringers, Lactated) Confirm Administered Dose 1,000 mls @ as directed .ROUTE .STK-MED ONE Stop: 09/15/19 08:24 Cefazolin Sodium/Dextrose 1 gm (/ Premix) 50 mls @ 100 mls/hr IV Q8H [facility] Stop: 09/16/19 08:29 Last Admin: 09/16/19 07:30 Dose: 100 mls/hr Documented by: Iodine (Iodine 2% Mild Tincture) Confirm Administered Dose 30 ml .ROUTE .STK-MED ONE Stop: 09/15/19 07:30 Last Admin: 09/15/19 09:19 Dose: 18 ml Documented by: Lidocaine/Sodium Bicarbonate (Buffered Lidocaine 1% In Ns 8.4%) 0.25 ml IDERM ONETIME PRN PRN Reason: Prior to IV Start Stop: 09/15/19 18:00 Midazolam HCl (Versed 1 Mg/Ml) Confirm Administered Dose 2 mg .ROUTE .STK-MED ONE Stop: 09/15/19 07:44 Oxycodone HCl (Oxycontin) 10 mg PO ONETIME [facility] Stop: 09/15/19 12:00 Last Admin: 09/15/19 07:21 Dose: 10 mg Documented by: Pregabalin (Lyrica) 50 mg PO ONETIME [facility] Stop: 09/15/19 12:00 Last Admin: 09/15/19 07:21 Dose: 50 mg Documented by: Propofol (Diprivan 20 Ml) Confirm Administered Dose 600 mg .ROUTE .STK-MED ONE Stop: 09/15/19 07:44 Propofol (Diprivan 20 Ml) Confirm Administered Dose 200 mg .ROUTE .STK-MED ONE Stop: 09/15/19 09:12 Ropivacaine (Naropin 0.5%) Confirm Administered Dose 30 ml .ROUTE .STK-MED ONE Stop: 09/15/19 07:13 Sodium Chloride (Saline Flush) 10 ml FLUSH ASDIRECTED PRN PRN Reason: Keep Vein Open Stop: 09/15/19 18:00 Tamsulosin HCl (Flomax) 0.4 mg PO DAILY [facility] Tranexamic Acid (Cyklokapron) Confirm Administered Dose 1,000 mg .ROUTE .STK-MED ONE Stop: 09/15/19 07:29 Last Admin: 09/15/19 09:37 Dose: 1,000 mg Documented by: Vancomycin HCl (Vancomycin) Confirm Administered Dose 1 gm .ROUTE .STK-MED ONE Stop: 09/15/19 07:30 Last Admin: 09/15/19 09:38 Dose: 1 gm Documented by:
[2019-09-16] MEDS ORDERED: Allopurinol 300 MG Tab PO SCH (09:00)
[2019-09-16] MEDS ORDERED: Rivaroxaban 10 MG Tab PO SCH (09:00)
[2019-09-16] MEDS ORDERED: Tamsulosin 0.4 MG Cap.ER PO SCH (09:00)
[2019-09-16] MEDS ORDERED: Cholecalciferol (Vitamin D3) 5,000 UNIT Tab PO SCH (09:00)
--- NOTE | 2019-09-16 12:33 | PCM48HPAN ---
Post Anesthesia Note - EVALUATION WITHIN 48HRS OF ANESTHETIC Vital Signs in Normal Range: Yes Patient Participated in Evaluation: Yes Respiratory Function Stable: Yes Airway Patent: Yes Cardiovascular Function Stable: Yes Hydration Status Stable: Yes Pain Control Satisfactory: Yes Nausea and Vomiting Control Satisfactory: Yes Mental Status Recovered: Yes Vital Signs: Last Vital Signs Temp 36.6 C 09/16/19 07:42 Pulse 87 09/16/19 07:42 Resp 18 09/16/19 07:31 BP 141/71 H 09/16/19 07:31 Pulse Ox 95 09/16/19 07:42
--- NOTE | 2019-09-19 12:28 | OR ---
DATE OF OPERATION: 09/15/2019 SURGEON: Elier Zambrano MD OPERATION PERFORMED: Right total knee arthroplasty. PREOPERATIVE DIAGNOSIS: Right knee osteoarthrosis. POSTOPERATIVE DIAGNOSIS: Right knee osteoarthrosis. ANESTHESIA: Local MAC with spinal. ANESTHESIA PROVIDER: Brandie Frederick. ASSISTANTS: Rosa Wyatt PA-C and Kimmie Jimenez LPN. ESTIMATED BLOOD LOSS: 500 mL. COMPLICATIONS: None. CONDITION: Stable. IMPLANT: 1. Karon size 6 press-fit CR femur. 2. [place] size 5 press-fit tibial base plate. 3. [place] size 5, 11 mm CS polyethylene insert. 4. Karon size 35 x 10 mm press-fit asymmetric patella. DESCRIPTION OF PROCEDURE: The patient was identified in the preop holding area. Proper site was marked and identified by the surgeon. The patient was taken back to the operating theater. After adequate anesthesia, the patient's right lower extremity had a nonsterile tourniquet applied and it was sterilely prepped and draped in the usual sterile fashion. OR time-out was performed. The patient received 2 g IV Ancef. At this time, the right lower extremity was exsanguinated. Tourniquet was insufflated to 300 mmHg. Standard medial parapatellar incision was made. Medial parapatellar arthrotomy was created. Deep fibers of the MCL were raised and anterior fat pad was resected. At this time, attention was turned to the patella. Patella measured at 25 mm, it was resected to a 15 mm for 35 x 10 mm patella. Drill holes were then drilled and found to be in adequate position. The drill was then drilled in the distal femur and the intramedullary distal femoral cutting guide was then placed. 8 mm was resected off the distal femur and was found to be an adequate resection. Sizing guide was placed. It was found to be a [place] size 6 press-fit CR femur that was shown on the implant record at the beginning of this dictation. The drill holes were drilled for the epicondylar axis using Whitesides line and epicondyles as reference. At this time, the 4-in-1 cutting block was placed. An anterior posterior and anterior and posterior chamfer cuts were then completed. Attention was turned to the tibia. The posterior medial lateral retractors were placed. The extramedullary tibial guide was placed. It was placed in the old footprint of the ACL. It was aligned with the center of the ankle and 0 degrees of slope, 9 mm was then resected off the unaffected side. There was found to be an acceptable reduction. At this time, posterior osteophytes were removed along with medial and lateral meniscus. A trial implant was placed with a correct sized tibia that was mentioned at the beginning of the dictation. A Karon size 5, 11 mm CS polyethylene insert was then placed. The patient's knee was brought through range of motion. The patella was tracking centrally and was stable to varus and valgus stress. Alignment was found to be roughly at 0 degrees. The tibia was stamped and drilled in proper rotation. The universal tibial base plate was impacted in place. Next, the [place] size 6 press-fit CR femur impacted into place and the [place] size 5, 11 mm CS polyethylene insert was placed. The patient's knee was brought into full extension. The patella was then press-fit in place at this time. Tourniquet was deflated. One liter dilute Betadine solution was irrigated through the knee along with 3 L of pulse lavage irrigation with Ancef. Periarticular injection was then completed. The patient's knee was brought through a range of motion. Knee was found to be stable to varus valgus stress, the patella was tracking centrally with full range of motion. At this time, a #2 barbed suture was used for closure of the medial parapatellar arthrotomy. Topical tranexamic acid was placed. 2-0 Vicryl was used subcutaneously, Prineo was used for the skin. The patient tolerated the procedure well and was sent to the PACU in stable condition. MMODAL /[id number] NIKO
== END 2019-09-16 09:33 | disposition home or self-care (01) | DRG 470 ==
LOC: JD.SDS 07:09 → JD.MS 07:10 → JD.SDS 13:35 → JD.MS 13:35
PROVIDERS: ADMIT Orthopaedic Surgery; ATTEND Orthopaedic Surgery
PROC: 0SRC0JA Replacement of Right Knee Joint with Synthetic Substitute, Uncemented, Open Approach (ICD-10-PCS; principal; 2019-09-15)
DX: M17.11 Unilateral primary osteoarthritis, right knee (principal); Z79.899 Other long term (current) drug therapy; Z98.41 Cataract extraction status, right eye; Z98.42 Cataract extraction status, left eye; Z98.890 Other specified postprocedural states; M10.9 Gout, unspecified; N40.0 Benign prostatic hyperplasia without lower urinary tract symptoms; H54.7 Unspecified visual loss; K21.9 Gastro-esophageal reflux disease without esophagitis; G89.29 Other chronic pain; M54.9 Dorsalgia, unspecified; M19.90 Unspecified osteoarthritis, unspecified site; F41.9 Anxiety disorder, unspecified; Z96.642 Presence of left artificial hip joint; Z87.891 Personal history of nicotine dependence; I45.10 Unspecified right bundle-branch block
CPT/HCPCS: 01402; 36415; 64450; 73560-26-RT; 73560-RT; 80053; 85027; 85610; 85730; 87641; 97110-GP; 97116-GP; 97161-GP; 97165-GO; 99221; 99231; A9270-GY; C1776; J0171; J0690; J0697; J1100; J1885; J2001; J2250; J2270; J2704; J2795; J3370; J3490; J7120

== ENCOUNTER → 2019-11-21 | Day surgery (SDC) | payer OTHER ==
[~2019-11-21] MED LIST changes: -Acetaminophen 325 MG Tab PO SCH; -Bisacodyl 5 MG Tab PO PRN; -Famotidine 20 MG Tab PO SCH; -Ketorolac 15 MG/ML SDV IVPUSH PRN; +Lidocaine 1% 4 ML ONE; -Magnesium Hydroxide 400 MG/5 ML Susp 30 ML Cup PO PRN; +Midazolam 1 MG/ML 2 ML SDV ONE; -Morphine 2 MG/ML SYRINGE IVPUSH PRN; -Naloxone 0.4 MG/ML SDV IVPUSH PRN; -Pregabalin 25 MG Cap PO SCH; +Propofol 200 MG/20 ML SDV ONE; -Sennosides 8.6 MG Tab PO PRN; +fentaNYL 100 MCG/2 ML SDV ONE; -oxyCODONE ER 10 MG TAB.ER PO SCH
--- NOTE | 2019-11-21 07:46 | PCM.HP.2 ---
H&P History of Present Illness - General Date of Service: 11/21/19 Admit Problem/Dx: Family history of colon polyps Source of Information: Patient - History of Present Illness Initial Comments - Free Text/Narative: 59 year old male with a family history of colon polyps. he has no blood in the stool, last colonoscopy was 10 years ago and was normal. - Related Data Allergies/Adverse Reactions: Allergies Allergy/AdvReac Type Severity Reaction Status Date / Time No Known Allergies Allergy Verified 11/20/19 14:34 Home Medications: Home Meds Omeprazole 40 mg PO DAILY 03/05/19 [History] Tamsulosin [Flomax] 0.4 mg PO DAILY 03/05/19 [History] allopurinoL [Zyloprim] 300 mg PO DAILY 03/05/19 [History] Acetaminophen [Tylenol Arthritis] 650 mg PO Q8H PRN 11/20/19 [History] Vardenafil HCl [Levitra] 20 mg PO ASDIRECTED PRN 11/20/19 [History] Past Medical History HEENT History: Reports: Impaired Vision, Other (See Below) Other HEENT History: wears glasses Cardiovascular History: Reports: Other (See Below) Other Cardiovascular History: right bundle branch block Respiratory History: Reports: None Gastrointestinal History: Reports: GERD, Hiatal Hernia, Other (See Below) Other Gastrointestinal History: states he has some trouble swallowing at times if he doesn't chew his food well enough Genitourinary History: Reports: BPH 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 ASSEMBLER History: Reports: None Musculoskeletal History: Reports: Osteoarthritis Other Musculoskeletal History: degenerative joint disease Neurological History: Reports: None Psychiatric History: Reports: Anxiety Endocrine/Metabolic History: Reports: None Hematologic History: Reports: None Immunologic History: Reports: None Oncologic (Cancer) History: Reports: None Dermatologic History: Reports: None - Infectious Disease History Infectious Disease History: Reports: None - Past Surgical History Head Surgeries/Procedures: Reports: None HEENT Surgical History: Reports: Cataract Surgery Cardiovascular Surgical History: Reports: None Respiratory Surgical History: Reports: None GI Surgical History: Reports: Colonoscopy, EGD Female Surgical History: Reports: None Male Surgical History: Reports: None Endocrine Surgical History: Reports: None Neurological Surgical History: Reports: None Musculoskeletal Surgical History: Reports: Carpal Tunnel, Hip Replacement, Knee Replacement Other Musculoskeletal Surgeries/Procedures:: bilateral tightrope procedures to hands Oncologic Surgical History: Reports: None Dermatological Surgical History: Reports: None Social & Family History - Tobacco Use Smoking Status *Q: Never Smoker - Caffeine Use Caffeine Use: Reports: Coffee, Soda, Other Other Caffeine Use: diet pepsi, coffee in the morning - Recreational Drug Use Recreational Drug Use: No Drug Use in Last 12 Months: No H&P Review of Systems - Review of Systems: Review Of Systems: See Below General: Reports: No Symptoms Pulmonary: Reports: No Symptoms Cardiovascular: Reports: No Symptoms Gastrointestinal: Reports: No Symptoms Skin: Reports: No Symptoms Exam - Exam Exam: See Below - Vital Signs Vital Signs: Last Vital Signs Temp 36.2 C 11/21/19 06:45 Pulse 97 11/21/19 06:45 Resp 16 11/21/19 06:45 BP 123/46 L 11/21/19 06:45 Pulse Ox 96 11/21/19 06:45 Weight: 130.635 kg - Exam General: Alert, Oriented Lungs: Clear to Auscultation, Normal Respiratory Effort Cardiovascular: Regular Rate, Regular Rhythm GI/Abdominal Exam: Normal Bowel Sounds, Soft, Non-Tender - Patient Data Lab Results Last 24 hrs: Laboratory Results - last 24 hr 11/18/19 Range/Units 11:45 SARS-CoV-2 (PCR) Not detected (NOT DETECT) Sepsis Event Note - Focused Exam Vital Signs: Vital Signs Temp Pulse Resp BP Pulse Ox 11/21/19 06:45 36.2 C 97 16 123/46 L 96 - Problem List (1) Family history of colonic polyps SNOMED Code(s): 950492073 ICD Code: Z83.71 - FAMILY HISTORY OF COLONIC POLYPS Status: Acute Current Visit: Yes Problem List Initiated/Reviewed/Updated: Yes Orders Last 24hrs: Active Orders 24 hr Category Date Time Status Peripheral IV Care [RC] . DIRECTED Care 11/21/19 07:00 Active Verify Patient Consent Obtain [RC] ASDIRECTED Care 11/21/19 07:00 Active Lactated Ringers [Ringers, Lactated] 1,000 ml Med 11/21/19 07:00 Active IV ASDIRECTED Lidocaine 1%/Sod Bicarbonate [Buffered Lidocaine 1% in Med 11/21/19 07:00 Active NS 8.4%] 0.25 ml IDERM ONETIME PRN Sodium Chloride 0.9% [Saline Flush] Med 11/21/19 07:00 Active 10 ml FLUSH ASDIRECTED PRN Medication Administration Instruction [OM.PC] Routine Oth 11/21/19 07:00 Ordered Peripheral IV Insertion Adult [OM.PC] Routine Oth 11/21/19 07:00 Ordered Medication Orders Lactated Ringer's (Ringers, Lactated) 1,000 mls @ 125 mls/hr IV ASDIRECTED [facility] Stop: 11/21/19 23:00 Lidocaine/Sodium Bicarbonate (Buffered Lidocaine 1% In Ns 8.4%) 0.25 ml IDERM ONETIME PRN PRN Reason: Prior to IV Start Stop: 11/21/19 18:00 Sodium Chloride (Saline Flush) 10 ml FLUSH ASDIRECTED PRN PRN Reason: Keep Vein Open Stop: 11/21/19 18:00 Assessment/Plan Comment:: Family history of colon polyps - proceed with colonoscopy after discussing benefits and risks.
--- NOTE | 2019-11-21 08:27 | PCM.OPNOTE ---
- General Post-Op/Procedure Note Date of Surgery/Procedure: 11/21/19 Operative Procedure(s): Colonoscopy Findings: Normal colonoscopy Pre Op Diagnosis: Family history of colon polyps Post-Op Diagnosis: Normal colonoscopy Anesthesia Technique: MAC Primary Surgeon: Dell Ross Anesthesia Provider: José Oliver EBL in mLs: 0 Complications: None Condition: Good Free Text/Narrative:: After the patient gave verbal and written consent he was placed on blood pr essure and pulse ox monitoring. He was given IV sedation which he tolerated well. The olympus colonoscope was inserted per rectum and advanced to the cecum without difficulty. The ileocecal valve and appendiceal orfice were imaged documenting cecal intubation. The scope was slowly withdrawn and mucosal surfaces were carefully examined. The prep was good, the views were good. The scope was then retroflexed in the rectum and then removed. The patient had no complications and left the OR in good condition. Next screening colonoscopy in 10 years for screening purposes.
--- NOTE | 2019-11-21 08:35 | PCM.PREANE ---
Preanesthetic Assessment - Procedure Proposed Procedure: Screening Colonoscopy - Anesthesia/Transfusion/Family Hx Anesthesia History: Prior Anesthesia Without Reaction Transfusion History: No Prior Transfusion(s) Type of Transfusion Reactions: Reports: Unknown Intubation History: Unknown - Review of Systems General: No Symptoms Pulmonary: No Symptoms Cardiovascular: No Symptoms Gastrointestinal: No Symptoms Neurological: No Symptoms Other: Reports: None - Physical Assessment NPO Status Date: 11/21/19 (greater than 8 hours) Vital Signs: Last Vital Signs Temp 36.2 C 11/21/19 06:45 Pulse 97 11/21/19 06:45 Resp 16 11/21/19 06:45 BP 123/46 L 11/21/19 06:45 Pulse Ox 96 11/21/19 06:45 Height: 6 ft Weight: 130.635 kg ASA Class: 2 Mental Status: Alert & Oriented x3 Airway Class: Mallampati = 2 Dentition: Reports: Normal Dentition ROM/Head Extension: Full Lungs: Clear to Auscultation, Normal Respiratory Effort Cardiovascular: Regular Rate, Regular Rhythm - Lab Values: Laboratory Last Values SARS-CoV-2 (PCR) Not detected (NOT DETECT) 11/18/19 11:45 - Allergies Allergies/Adverse Reactions: Allergies Allergy/AdvReac Type Severity Reaction Status Date / Time No Known Allergies Allergy Verified 11/20/19 14:34 - Acknowledgements Anesthesia Type Planned: MAC Pt an Appropriate Candidate for the Planned Anesthesia: Yes Alternatives and Risks of Anesthesia Discussed w Pt/Guardian: Yes Pt/Guardian Understands and Agrees with Anesthesia Plan: Yes PreAnesthesia Questionnaire HEENT History: Reports: Impaired Vision, Other (See Below) Other HEENT History: wears glasses Cardiovascular History: Reports: Other (See Below) Other Cardiovascular History: right bundle branch block Respiratory History: Reports: None Gastrointestinal History: Reports: GERD, Hiatal Hernia, Other (See Below) Other Gastrointestinal History: states he has some trouble swallowing at times if he doesn't chew his food well enough Genitourinary History: Reports: [employer] History: Reports: None Musculoskeletal History: Reports: Osteoarthritis Other Musculoskeletal History: degenerative joint disease Neurological History: Reports: None Psychiatric History: Reports: Anxiety Endocrine/Metabolic History: Reports: None Hematologic History: Reports: None Immunologic History: Reports: None Oncologic (Cancer) History: Reports: None Dermatologic History: Reports: None - Infectious Disease History Infectious Disease History: Reports: None - Past Surgical History Head Surgeries/Procedures: Reports: None HEENT Surgical History: Reports: Cataract Surgery Cardiovascular Surgical History: Reports: None Respiratory Surgical History: Reports: None GI Surgical History: Reports: Colonoscopy, EGD Female Surgical History: Reports: None Male Surgical History: Reports: None Endocrine Surgical History: Reports: None Neurological Surgical History: Reports: None Musculoskeletal Surgical History: Reports: Carpal Tunnel, Hip Replacement, Knee Replacement Other Musculoskeletal Surgeries/Procedures:: bilateral tightrope procedures to hands Oncologic Surgical History: Reports: None Dermatological Surgical History: Reports: None - SUBSTANCE USE Smoking Status *Q: Never Smoker Recreational Drug Use History: No - HOME MEDS Home Medications: Home Meds Omeprazole 40 mg PO DAILY 03/05/19 [History] Tamsulosin [Flomax] 0.4 mg PO DAILY 03/05/19 [History] allopurinoL [Zyloprim] 300 mg PO DAILY 03/05/19 [History] Acetaminophen [Tylenol Arthritis] 650 mg PO Q8H PRN 11/20/19 [History] Vardenafil HCl [Levitra] 20 mg PO ASDIRECTED PRN 11/20/19 [History] - CURRENT (IN HOUSE) MEDS Current Meds: Current Medications Lactated Ringer's (Ringers, Lactated) 1,000 mls @ 125 mls/hr IV ASDIRECTED IDANIA Stop: 11/21/19 23:00 Last Admin: 11/21/19 06:47 Dose: 125 mls/hr Documented by: Lidocaine/Sodium Bicarbonate (Buffered Lidocaine 1% In Ns 8.4%) 0.25 ml IDERM ONETIME PRN PRN Reason: Prior to IV Start Stop: 11/21/19 18:00 Last Admin: 11/21/19 07:47 Dose: 0.25 ml Documented by: Sodium Chloride (Saline Flush) 10 ml FLUSH ASDIRECTED PRN PRN Reason: Keep Vein Open Stop: 11/21/19 18:00 Discontinued Medications Fentanyl (Sublimaze) Confirm Administered Dose 100 mcg .ROUTE .STK-MED ONE Stop: 11/21/19 08:04 Lidocaine HCl (Xylocaine-Mpf 1%) Confirm Administered Dose 4 mls @ as directed .ROUTE .STK-MED ONE Stop: 11/21/19 07:40 Midazolam HCl (Versed 1 Mg/Ml) Confirm Administered Dose 2 mg .ROUTE .STK-MED ONE Stop: 11/21/19 08:05 Propofol (Diprivan 20 Ml) Confirm Administered Dose 400 mg .ROUTE .STK-MED ONE Stop: 11/21/19 07:40
--- NOTE | 2019-11-21 08:36 | PCM48HPAN ---
Post Anesthesia Note - EVALUATION WITHIN 48HRS OF ANESTHETIC Vital Signs in Normal Range: Yes Patient Participated in Evaluation: Yes Respiratory Function Stable: Yes Airway Patent: Yes Cardiovascular Function Stable: Yes Hydration Status Stable: Yes Pain Control Satisfactory: Yes Nausea and Vomiting Control Satisfactory: Yes Mental Status Recovered: Yes Vital Signs: Last Vital Signs Temp 36.2 C 11/21/19 06:45 Pulse 97 11/21/19 06:45 Resp 16 11/21/19 06:45 BP 123/46 L 11/21/19 06:45 Pulse Ox 96 11/21/19 06:45 - COMMENTS/OBSERVATIONS Free Text/Narrative:: VSS, SV, IBRAHIM, FAC, CTAB. No concerns at this time. Patient may be discharged when nursing care has completed.
[2019-11-21 09:47] VITALS: BP 133/84; PULSE 81
== END | disposition home or self-care (01) ==
LOC: JD.SDS 06:42
PROVIDERS: ATTEND Family Medicine
DX: Z12.11 Encounter for screening for malignant neoplasm of colon (principal); K21.9 Gastro-esophageal reflux disease without esophagitis; F41.9 Anxiety disorder, unspecified; Z01.812 Encounter for preprocedural laboratory examination; Z20.828 Contact with and (suspected) exposure to other viral communicable diseases; Z80.0 Family history of malignant neoplasm of digestive organs
CPT/HCPCS: 45378; 87635; J2001; J2250; J2704; J3010; J7120; U0002